=== PATIENT | male | born 1945 | race Caucasian/White ===

== ENCOUNTER 2019-07-06 11:59 | Inpatient (IN) | payer BC ==
[~2019-07-06] VITALS: Ht 162.6 cm; Wt 70.0 kg
[2019-07-06 12:26] VITALS: BP 149/71
[2019-07-06] MEDS ORDERED: HYDR-2759 PO (12:50)
[2019-07-06] MEDS ORDERED: DILT360C32 PO (12:50)
[2019-07-06] MEDS ORDERED: TRAZ-86 PO (12:50)
[2019-07-06] MEDS ORDERED: ASPI-630 PO (12:50)
[2019-07-06] MEDS ORDERED: LISI10TA2 PO (12:50)
[2019-07-06] MEDS ORDERED: LORA0.5T PO (12:50)
[2019-07-06] MEDS ORDERED: CARV25TA2 PO (12:50)
[2019-07-06] MEDS ORDERED: OLAN5TAB5 PO (12:50)
[2019-07-06] MEDS ORDERED: ALLO300T PO (12:50)
[2019-07-06] MEDS ORDERED: CEFD300C PO (12:56)
[2019-07-06] MEDS ORDERED: MAG HYDROX/AL HYDROX/SIMETH 30 ML ORAL.SUSP PO PRN (13:15)
[2019-07-06] MEDS ORDERED: METHYL SALICYLATE/MENTHOL TOPICAL OINTMENT 57GM TUBE. TP PRN (13:15)
[2019-07-06] MEDS ORDERED: ACETAMINOPHEN 325 MG TABLET PO PRN (13:15)
[2019-07-06 13:43] LABS: ALBUMIN 4.1 g/dL (3.4-5.0); ALBUMIN/GLOBULIN RATIO 1.2 (1.0-1.7); CALCIUM 9.3 mg/dL (8.5-10.1); CREATININE 2.8 mg/dL (0.7-1.3); GFR 22.3; MAGNESIUM 2.3 mg/dL (1.8-2.4); POTASSIUM 4.5 mmol/L (3.5-5.1); TOTAL BILIRUBIN 0.5 mg/dL (0.2-1.0); TOTAL PROTEIN 7.4 g/dL (6.4-8.2)
[2019-07-06 14:28] LABS: BASO % 1 % (0-3); EOS # 0.1 x10^3/uL (0.0-0.7); EOS % 2 % (0-3); HEMATOCRIT 42.5 % (39.0-53.0); HEMOGLOBIN 14.1 g/dL (13.0-17.5); LYMPH # 1.8 x10^3/uL (1.0-4.8); LYMPH % 33 % (24-48); MEAN CORPUSCULAR HEMOGLOBIN 32 pg (25-35); MEAN CORPUSCULAR HGB CONC 33 g/dL (31-37); MEAN CORPUSCULAR VOLUME 97 fL (79-100); MONO # 0.6 x10^3/uL (0.0-1.1); MONO % 12 % (0-9); NEUT # 2.9 x10^3uL (1.8-7.7); NEUT % 53 % (31-73); PLATELET COUNT 142 x10^3/uL (140-400); RED CELL DISTRIBUTION WIDTH 14.5 % (11.5-14.5); WHITE BLOOD COUNT 5.4 x10^3/uL (4.0-11.0)
[2019-07-06 16:23] VITALS: BP 159/81
[2019-07-06] MEDS: CARVEDILOL 12.5 MG TABLET PO SCH (17:09)
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
[2019-07-06] MEDS: traZODone 100 MG TABLET. PO SCH (20:02)
--- NOTE | 2019-07-06 21:38 | PDOC ---
Exam Note: Shady Note: Please also refer to the separate dictated note~for this date of service dictated separately. Discussed the patient with Nursing staff reviewed the chart.~Reviewed interim history and current functioning. Reviewed vital signs,~Labs/ Radiology~and current medications noted below. Continue current treatment with the changes noted in the dictated addendum note Assessment: Vital Signs/I&O: Vital Signs Date Time Temp Pulse Resp B/P (MAP) Pulse Ox O2 Delivery O2 Flow Rate FiO2 07/06/19 17:09 60 159/81 07/06/19 16:23 97.8 16 97 07/06/19 12:26 Room Air Labs: Laboratory Tests Test 07/06/19 13:20 White Blood Count 5.4 x10^3/uL (4.0-11.0) Red Blood Count 4.40 x10^6/uL (4.30-5.70) Hemoglobin 14.1 g/dL (13.0-17.5) Hematocrit 42.5 % (39.0-53.0) Mean Corpuscular Volume 97 fL (79-100) Mean Corpuscular Hemoglobin 32 pg (25-35) Mean Corpuscular Hemoglobin Concent 33 g/dL (31-37) Red Cell Distribution Width 14.5 % (11.5-14.5) Platelet Count 142 x10^3/uL (140-400) Neutrophils (%) (Auto) 53 % (31-73) Lymphocytes (%) (Auto) 33 % (24-48) Monocytes (%) (Auto) 12 % (0-9) H Eosinophils (%) (Auto) 2 % (0-3) Basophils (%) (Auto) 1 % (0-3) Neutrophils # (Auto) 2.9 x10^3uL (1.8-7.7) Lymphocytes # (Auto) 1.8 x10^3/uL (1.0-4.8) Monocytes # (Auto) 0.6 x10^3/uL (0.0-1.1) Eosinophils # (Auto) 0.1 x10^3/uL (0.0-0.7) Basophils # (Auto) 0.0 x10^3/uL (0.0-0.2) Sodium Level 143 mmol/L (136-145) Potassium Level 4.5 mmol/L (3.5-5.1) Chloride Level 107 mmol/L (98-107) Carbon Dioxide Level 27 mmol/L (21-32) Anion Gap 9 (6-14) Blood Urea Nitrogen 46 mg/dL (8-26) H Creatinine 2.8 mg/dL (0.7-1.3) H Estimated GFR (Cockcroft-Gault) 22.3 BUN/Creatinine Ratio 16 (6-20) Glucose Level 135 mg/dL (70-99) H Calcium Level 9.3 mg/dL (8.5-10.1) Magnesium Level 2.3 mg/dL (1.8-2.4) Total Bilirubin 0.5 mg/dL (0.2-1.0) Aspartate Amino Transferase (AST) 16 U/L (15-37) Alanine Aminotransferase (ALT) 11 U/L (16-63) L Alkaline Phosphatase 91 U/L (46-116) Total Protein 7.4 g/dL (6.4-8.2) Albumin 4.1 g/dL (3.4-5.0) Albumin/Globulin Ratio 1.2 (1.0-1.7) Current Medications: Meds: Current Medications Medications (Trade) Dose Ordered Sig/Bashir Route PRN Reason Start Time Stop Time Status Last Admin Dose Admin Olanzapine (ZyPREXA ZYDIS) 2.5 mg PRN Q2HR PRN PO ANXIETY / AGITATION 07/06/19 13:00 07/06/19 20:02 Trazodone HCl (Desyrel) 100 mg HS PO 07/06/19 21:00 07/06/19 20:02 Carvedilol (Coreg) 25 mg BIDWMEALS PO 07/06/19 17:00 07/06/19 17:09 I have reviewed the current psychotropics carefully including drug interactions. Risk benefit ratio favors no change other than as noted in my dictated progress note. Diagnosis: Problems: (1) Anxiety disorder (2) Dementia, vascular, with depression (3) Dementia, vascular, with delusions (4) Dementia in Alzheimer's disease with depression (5) Dementia in Alzheimer's disease with delusions (6) Impulse control disorder (7) Pick's disease LENORA SHIRLEY MD Jul 06, 2019 21:38
[2019-07-06] MEDS: LORazepam 0.5 MG TABLET PO PRN (22:09)
[2019-07-07 03:07] LABS: HEMOGLOBIN A1C 5.7 % (4.8-5.6)
[2019-07-07 05:52] VITALS: BP 127/69
[2019-07-07] MEDS: ASPIRIN 81 MG TAB.CHEW PO SCH (08:15)
[2019-07-07] MEDS: LACTOBACILLUS RHAMNOSUS GG 1 CAPSULE. PO SCH ×2 (08:16→19:57)
[2019-07-07] MEDS: ALLOPURINOL 300 MG TABLET. PO SCH (08:16)
[2019-07-07] MEDS: CEFDINIR 300 MG CAPSULE PO SCH ×2 (08:16→19:57)
[2019-07-07] MEDS: CARVEDILOL 12.5 MG TABLET PO SCH ×3 (08:16→22:45)
[2019-07-07] MEDS: LISINOPRIL 10 MG TABLET PO SCH (08:17)
[2019-07-07] MEDS: HYDROcodone/APAP 5/325MG 1 TAB TABLET PO PRN (08:17)
[2019-07-07] MEDS ORDERED: FLU VAX QS 2019-20 (36MOS+)/PF 0.5 ML SYRINGE. VAX IM ONE (09:00)
[2019-07-07 10:38] LABS: ALBUMIN 3.9 g/dL (3.4-5.0); ALBUMIN/GLOBULIN RATIO 1.2 (1.0-1.7); CALCIUM 9.3 mg/dL (8.5-10.1); CREATININE 2.3 mg/dL (0.7-1.3); POTASSIUM 4.8 mmol/L (3.5-5.1); TOTAL BILIRUBIN 0.7 mg/dL (0.2-1.0); TOTAL PROTEIN 7.1 g/dL (6.4-8.2)
[2019-07-07 10:47] LABS: THYROID STIM HORMONE (TSH) 0.451 uIU/mL (0.358-3.740)
[2019-07-07 15:45] VITALS: BP 93/59
[2019-07-07] MEDS: traZODone 100 MG TABLET. PO SCH (19:57)
[2019-07-07] MEDS: LORazepam 0.5 MG TABLET PO PRN (20:54)
--- NOTE | 2019-07-07 21:54 | PDOC ---
Exam Note: Shady Note: Please also refer to the separate dictated note~for this date of service dictated separately.~Patient seen individually. Discussed the patient with Nursing staff reviewed the chart.~Reviewed interim history and current functioning. Reviewed vital signs,~Labs/ Radiology~and current medications noted below. Continue current treatment with the changes noted in the dictated addendum note Assessment: Vital Signs/I&O: Vital Signs Date Time Temp Pulse Resp B/P (MAP) Pulse Ox O2 Delivery O2 Flow Rate FiO2 07/07/19 16:07 52 93/59 07/07/19 15:45 97.7 16 96 Room Air I & O 07/06/19 07/06/19 07/07/19 15:00 23:00 07:00 Intake Total 240 ml 360 ml Balance 240 ml 360 ml Labs: Laboratory Tests Test 07/07/19 10:04 Sodium Level 144 mmol/L (136-145) Potassium Level 4.8 mmol/L (3.5-5.1) Chloride Level 108 mmol/L (98-107) H Carbon Dioxide Level 27 mmol/L (21-32) Anion Gap 9 (6-14) Blood Urea Nitrogen 42 mg/dL (8-26) H Creatinine 2.3 mg/dL (0.7-1.3) H Estimated GFR (Cockcroft-Gault) 28.0 BUN/Creatinine Ratio 18 (6-20) Glucose Level 122 mg/dL (70-99) H Calcium Level 9.3 mg/dL (8.5-10.1) Total Bilirubin 0.7 mg/dL (0.2-1.0) Aspartate Amino Transferase (AST) 25 U/L (15-37) Alanine Aminotransferase (ALT) 14 U/L (16-63) L Alkaline Phosphatase 90 U/L (46-116) Total Protein 7.1 g/dL (6.4-8.2) Albumin 3.9 g/dL (3.4-5.0) Albumin/Globulin Ratio 1.2 (1.0-1.7) Current Medications: Meds: Current Medications Medications (Trade) Dose Ordered Sig/Bashir Route PRN Reason Start Time Stop Time Status Last Admin Dose Admin Allopurinol (Zyloprim) 300 mg DAILY PO 07/07/19 09:00 07/07/19 08:16 Aspirin (Children'S Aspirin) 81 mg DAILY PO 07/07/19 09:00 07/07/19 08:15 Diltiazem HCl (Cardizem 24hr Cd) 360 mg DAILY PO 07/07/19 09:00 07/07/19 08:16 Influenza Virus Vaccine Quadrival (Afluria Quad 2018-20 (3yr Up) Syringe) 0.5 ml ONCE ONCE VAX IM 07/07/19 09:00 07/07/19 09:01 DC 07/07/19 17:29 Cefdinir (Omnicef) 300 mg BID PO 07/07/19 09:00 07/07/19 19:57 Lactobacillus Rhamnosus (Culturelle) 1 cap BID PO 07/07/19 09:00 07/07/19 19:57 I have reviewed the current psychotropics carefully including drug interactions. Risk benefit ratio favors no change other than as noted in my dictated progress note. Diagnosis: Problems: (1) Anxiety disorder (2) Dementia, vascular, with depression (3) Dementia, vascular, with delusions (4) Dementia in Alzheimer's disease with depression (5) Dementia in Alzheimer's disease with delusions (6) Impulse control disorder (7) Pick's disease LENORA SHIRLEY MD Jul 07, 2019 21:54
--- NOTE | 2019-07-08 04:17 | HP ---
ADMIT DATE: 07/06/2019 HISTORY OF PRESENT ILLNESS: This is a 73-year-old gentleman. The patient apparently has manic episodes where he has been walking around naked. He is very rigid, however. Decreased paucity of facial expression as well as generalized movement, although apparently he has been having problems with impulse control with aggressive punching and hitting, kicking at times to his . He also has some delusional activity of talking to small people and other than that, he was brought in for further evaluation. PAST MEDICAL HISTORY: Includes that of hypertension, history of alcohol abuse, although he has not had anything for the last 3 years. He has been on hospice care from time to time. UA was positive for infection. The patient also notes he has a history of Pick's disease. The patient also has Alzheimer, vascular type. ALLERGIES: The patient has no known allergies. The patient is a full code. CURRENT PSYCHOTROPICS: Trazodone 100 mg at bedtime, Ativan 0.5 mg q. 4, Zyprexa 2.5 q. 2. FAMILY HISTORY: Noncontributory. SOCIAL HISTORY: The patient was living at home with his who is trying to take good care of him. Previous alcohol abuse, but otherwise no other significant situations there. REVIEW OF SYSTEMS: The patient was unable to really answer any questions as noted and had marked paucity of speech. The patient is very rigid, although he had no tremor and like. PHYSICAL EXAMINATION: VITAL SIGNS: Blood pressure approximately 125/70, respirations 18, pulse 76, afebrile. GENERAL: This is a white male, looking appropriate for age; however, marked rigidity, also has very little facial expression and has a very guarded gait, whether this is related to medication or not ____ see the patient before, but it almost looks parkinsonian except for as ____ noted above. He has no resting tremor, no cogwheeling. LUNGS: Otherwise, the lungs are clear. CARDIOVASCULAR: Regular sinus rhythm. ABDOMEN: Soft, nontender in this frail-appearing white male. EXTREMITIES: No clubbing, cyanosis or edema. NEUROLOGIC: The patient is very barely arousable, does respond to his name, but other than that, was unable to really utter just a few words and he has marked paucity of speech no doubt. DIAGNOSES: Goes something like Pick's disease. He has problems with anxiety disorder; dementia, vascular with depression; dementia, vascular with delusions; dementia with Alzheimer types with depression and delusions, impulse control disorder, hypotension, marked decreased mobility and flexibility. PLAN: The patient will continue to be monitored carefully, make further evaluation on him as indicated. We will adjust his blood pressure medications downward ____ get his blood pressure back into a more reasonable range. VIOLETA DHALIWAL MD DR: YORDAN/nts JOB#: [id number] / [id number]
[2019-07-08 06:23] VITALS: BP 109/59
[2019-07-08] MEDS: LACTOBACILLUS RHAMNOSUS GG 1 CAPSULE. PO SCH ×2 (07:42→19:39)
[2019-07-08] MEDS: ASPIRIN 81 MG TAB.CHEW PO SCH (07:43)
[2019-07-08] MEDS: LISINOPRIL 10 MG TABLET PO SCH (07:43)
[2019-07-08] MEDS: CARVEDILOL 12.5 MG TABLET PO SCH ×2 (07:43→17:00)
[2019-07-08] MEDS: CEFDINIR 300 MG CAPSULE PO SCH ×2 (07:43→19:39)
[2019-07-08] MEDS: ALLOPURINOL 300 MG TABLET. PO SCH (07:43)
[2019-07-08 16:24] VITALS: BP 114/61
[2019-07-08] MEDS: LORazepam 0.5 MG TABLET PO PRN (17:18)
[2019-07-08] MEDS: traZODone 100 MG TABLET. PO SCH (19:39)
[2019-07-09] MEDS: LORazepam 0.5 MG TABLET PO PRN ×2 (00:02→17:43)
[2019-07-09 05:34] VITALS: BP 121/72
[2019-07-09] MEDS: LISINOPRIL 10 MG TABLET PO SCH (07:32)
[2019-07-09] MEDS: LACTOBACILLUS RHAMNOSUS GG 1 CAPSULE. PO SCH ×2 (07:32→20:48)
[2019-07-09] MEDS: ASPIRIN 81 MG TAB.CHEW PO SCH (07:32)
[2019-07-09] MEDS: CEFDINIR 300 MG CAPSULE PO SCH ×2 (07:32→20:48)
[2019-07-09] MEDS: ALLOPURINOL 300 MG TABLET. PO SCH (07:32)
[2019-07-09] MEDS: CARVEDILOL 12.5 MG TABLET PO SCH ×2 (07:33→17:43)
--- NOTE | 2019-07-09 14:45 | PN ---
DATE: 07/08/2019 SUBJECTIVE: The patient was seen today, met with the staff, chart reviewed, and also covering for Dr. Cote. The patient continues to have problems, was not able to sleep, withdrawn, confused, refusing ADLs, is also disorganized with his thinking. Staff reports no major physical complaints. No falls. OBSERVATION: VITAL SIGNS: Temperature 97.4, blood pressure 109/59, pulse 63, respirations 18, O2 sat 94%. Slept only about 4 hours last night. The patient's appetite is fair. LABORATORY DATA: The patient's lab reviewed. The patient's glucose level fluctuates, the last one was 122. The patient's LDL was 126. The patient's BUN was 42, creatinine 2.3. MEDICATIONS: The patient's current medications include trazodone 100 mg at night, olanzapine 2.5 mg q. 2 hours p.r.n. ASSESSMENT: Major neurocognitive disorder, most likely Alzheimer's versus vascular and also alcohol-induced. Generalized anxiety disorder. PLANS: Continue with the current treatment plan. Continue to observe his behavior because the patient had problems with aggressive behaviors prior to coming here. OLI PORRAS MD DR: DEMETRIA/alin JOB#: [id number] / [id number]
[2019-07-09 16:11] LABS: THYROXINE 8.2 ug/dL (4.5-12.0)
[2019-07-09] MEDS: DIVALPROEX 125 MG CAP.SPRINK PO SCH (20:48)
[2019-07-09] MEDS: traZODone 100 MG TABLET. PO SCH (20:48)
[2019-07-09] MEDS: OLANZapine 5 MG TABLET PO SCH (20:49)
[2019-07-10 05:30] VITALS: BP 101/60
[2019-07-10] MEDS: CARVEDILOL 12.5 MG TABLET PO SCH ×2 (08:00→17:13)
[2019-07-10 09:00] VITALS: BP 118/72
[2019-07-10] MEDS: LACTOBACILLUS RHAMNOSUS GG 1 CAPSULE. PO SCH ×2 (09:01→22:17)
[2019-07-10] MEDS: ALLOPURINOL 300 MG TABLET. PO SCH (09:02)
[2019-07-10] MEDS: ASPIRIN 81 MG TAB.CHEW PO SCH (09:02)
[2019-07-10] MEDS: CEFDINIR 300 MG CAPSULE PO SCH ×2 (09:02→22:16)
[2019-07-10] MEDS: DIVALPROEX 125 MG CAP.SPRINK PO SCH ×2 (09:04→22:17)
[2019-07-10] MEDS: LISINOPRIL 10 MG TABLET PO SCH (09:17)
--- NOTE | 2019-07-10 11:36 | PN ---
DATE: 07/09/2019 SUBJECTIVE: The patient was seen today, met with the staff, chart reviewed. The patient continues to exhibit increased agitation, also disorganized thinking. No falls. The patient is also exhibiting emotional lability and poor impulse control. concerned that the patient's medication is not changed since admission as he is getting only p.r.n. mediations. MEDICATIONS: The patient's current medications include trazodone 100 mg at night and Depakote was added 125 mg in the morning and 250 at night, and also the patient is on Zyprexa 5 mg at night p.r.n. to help him with sleep. VITAL SIGNS: Temperature 97.5, blood pressure 121/72, pulse 69, respiration 18, O2 sat 93%. LABORATORY DATA: The patient's lab reviewed. ASSESSMENT: 1. Major neurocognitive disorder, most likely Alzheimer's versus vascular and alcohol-induced. 2. Generalized anxiety disorder. PLAN: To continue with the treatment. OLI PORRAS MD DR: DEMETRIA/alin JOB#: [id number] / [id number]
[2019-07-10 12:19] VITALS: BP 132/62
[2019-07-10 16:22] VITALS: BP 122/66
--- NOTE | 2019-07-10 21:49 | PDOC ---
Exam Note: Shady Note: Please also refer to the separate dictated note~for this date of service dictated separately.~Patient seen individually. Discussed the patient with Nursing staff reviewed the chart.~Reviewed interim history and current functioning. Reviewed vital signs,~Labs/ Radiology~and current medications noted below. Continue current treatment with the changes noted in the dictated addendum note Assessment: Vital Signs/I&O: Vital Signs Date Time Temp Pulse Resp B/P (MAP) Pulse Ox O2 Delivery O2 Flow Rate FiO2 07/10/19 17:13 72 122/66 07/10/19 16:22 97.7 16 97 07/10/19 12:19 Room Air I & O 07/09/19 07/09/19 07/10/19 15:00 23:00 07:00 Intake Total 420 ml 480 ml Balance 420 ml 480 ml Current Medications: Meds: Current Medications Medications (Trade) Dose Ordered Sig/Bashir Route PRN Reason Start Time Stop Time Status Last Admin Dose Admin Divalproex Sodium (Depakote Sprinkles) 125 mg DAILY PO 07/10/19 09:00 07/10/19 09:04 I have reviewed the current psychotropics carefully including drug interactions. Risk benefit ratio favors no change other than as noted in my dictated progress note. Diagnosis: Problems: (1) Anxiety disorder (2) Dementia, vascular, with depression (3) Dementia, vascular, with delusions (4) Dementia in Alzheimer's disease with depression (5) Dementia in Alzheimer's disease with delusions (6) Impulse control disorder (7) Pick's disease LENORA SHIRLEY MD Jul 10, 2019 21:49
[2019-07-10] MEDS: OLANZapine 5 MG TABLET PO SCH (22:16)
[2019-07-10] MEDS: traZODone 100 MG TABLET. PO SCH (22:17)
--- NOTE | 2019-07-11 01:38 | PN ---
DATE: 07/07/2019 PSYCHIATRIC PROGRESS NOTE This late entry, 07/07, covers the elements not covered in my initial note. SUBJECTIVE: I met with the patient in the morning. Per WADE Camp, the patient slept 5 hours previous night, was agitated at night, received Zyprexa, Zydis and Ativan. He does have a UTI. Ceftin was given in the ER and then restarted on the unit on 07/07. He has been nonverbal, later did tell the nursing staff his name, but unaware of his date of . REVIEW OF SYSTEMS: No CV, , pulmonary, eye, ENT systems symptoms on review. Reliability poor. MENTAL STATUS EXAM: Oriented to himself. Insight, judgment, recent and remote memory, attention, concentration, fund of knowledge poor, consistent with his diagnosis mentioned in my initial note. PLAN: No change from initial note. Continue trazodone 100 mg at bedtime, Zyprexa p.r.n., treat the UTI. Consider adding SSRIs. Rest unchanged for now. MAN Varsha SHIRLEY MD DR: AMILCAR/alin JOB#: [id number] / [id number]
[2019-07-11 05:45] VITALS: BP 119/51
[2019-07-11 09:00] VITALS: BP 117/54
[2019-07-11] MEDS ORDERED: SERTRALINE 50 MG TABLET. PO SCH (09:00)
[2019-07-11] MEDS: LACTOBACILLUS RHAMNOSUS GG 1 CAPSULE. PO SCH ×2 (09:24→20:44)
[2019-07-11] MEDS: CEFDINIR 300 MG CAPSULE PO SCH ×2 (09:24→20:44)
[2019-07-11] MEDS: DIVALPROEX 125 MG CAP.SPRINK PO SCH ×2 (09:25→20:44)
[2019-07-11] MEDS: ASPIRIN 81 MG TAB.CHEW PO SCH (09:25)
[2019-07-11] MEDS: LISINOPRIL 10 MG TABLET PO SCH (09:26)
[2019-07-11] MEDS: ALLOPURINOL 300 MG TABLET. PO SCH (09:27)
[2019-07-11] MEDS: SERTRALINE 25 MG TABLET. PO SCH (09:29)
[2019-07-11] MEDS: LORazepam 0.5 MG TABLET PO PRN ×2 (09:42→22:29)
[2019-07-11 11:00] VITALS: BP 129/75
[2019-07-11] MEDS: CARVEDILOL 12.5 MG TABLET PO SCH ×2 (11:05→16:33)
[2019-07-11 16:23] VITALS: BP 104/60
[2019-07-11] MEDS: MAGNESIUM HYDROXIDE 2,400 MG/30 ML ORAL.SUSP. PO PRN (18:24)
[2019-07-11] MEDS: traZODone 100 MG TABLET. PO SCH (20:44)
[2019-07-11] MEDS: OLANZapine 5 MG TABLET PO SCH (20:46)
[2019-07-11] MEDS: MIRTAZAPINE 7.5 MG TABLET. PO SCH (20:47)
--- NOTE | 2019-07-11 21:55 | PDOC ---
Exam Note: Shady Note: Please also refer to the separate dictated note~for this date of service dictated separately.~Patient seen individually. Discussed the patient with Nursing staff reviewed the chart.~Reviewed interim history and current functioning. Reviewed vital signs,~Labs/ Radiology~and current medications noted below. Continue current treatment with the changes noted in the dictated addendum note Assessment: Vital Signs/I&O: Vital Signs Date Time Temp Pulse Resp B/P (MAP) Pulse Ox O2 Delivery O2 Flow Rate FiO2 07/11/19 16:33 62 104/60 07/11/19 16:23 97.2 16 97 07/11/19 05:45 Room Air I & O 07/10/19 07/10/19 07/11/19 15:00 23:00 07:00 Intake Total 120 ml 480 ml Balance 120 ml 480 ml Current Medications: Meds: Current Medications Medications (Trade) Dose Ordered Sig/Bashir Route PRN Reason Start Time Stop Time Status Last Admin Dose Admin Sertraline HCl (Zoloft) 25 mg DAILY PO 07/11/19 09:00 07/14/19 08:00 07/11/19 09:29 Mirtazapine (Remeron) 7.5 mg QHS PO 07/11/19 21:00 07/11/19 20:47 I have reviewed the current psychotropics carefully including drug interactions. Risk benefit ratio favors no change other than as noted in my dictated progress note. Diagnosis: Problems: (1) Anxiety disorder (2) Dementia, vascular, with depression (3) Dementia, vascular, with delusions (4) Dementia in Alzheimer's disease with depression (5) Dementia in Alzheimer's disease with delusions (6) Impulse control disorder (7) Pick's disease LENORA SHIRLEY MD Jul 11, 2019 21:55
--- NOTE | 2019-07-12 04:20 | PN ---
DATE: 07/10/2019 PSYCHIATRIC PROGRESS NOTE This late entry 07/10/2019 covers the elements not covered in my initial note. SUBJECTIVE: I met with the patient in the evening of 07/10/2019. The patient slept 7-1/4 hours previous night. He was combative in the morning with dressing, agitated, swinging at staff. He took his meds crushed. He is not very verbal. REVIEW OF SYSTEMS: No CV, , pulmonary, eye, ENT system symptoms on review. MENTAL STATUS EXAM: Oriented to himself. Insight, judgment, recent and remote memory, attention, concentration, fund of knowledge poor, consistent with his diagnosis. IMPRESSION: Major neurocognitive disorder, multifactorial, Alzheimer's, vascular, possibly due to alcohol with delusion, depression, behavioral disturbance; anxiety disorder, unspecified; impulse control disorder, unspecified; urinary tract infection. Rest unchanged. PLAN: Start Zoloft 25 mg a day, increase in 3 days to 50 mg a day. Continue Zyprexa p.r.n., trazodone 100 mg at bedtime, Ativan p.r.n. Consider Depakote as a mood stabilizer if needed or an atypical antipsychotic if psychotic features and symptoms are present. MAN Varsha SHIRLEY MD DR: AMILCAR/alin JOB#: [id number] / [id number]
[2019-07-12 06:26] VITALS: BP 124/62
[2019-07-12 07:49] LABS: BASO % 1 % (0-3); EOS # 0.1 x10^3/uL (0.0-0.7); EOS % 3 % (0-3); HEMATOCRIT 40.3 % (39.0-53.0); HEMOGLOBIN 13.1 g/dL (13.0-17.5); LYMPH # 1.8 x10^3/uL (1.0-4.8); LYMPH % 38 % (24-48); MEAN CORPUSCULAR HEMOGLOBIN 32 pg (25-35); MEAN CORPUSCULAR HGB CONC 33 g/dL (31-37); MEAN CORPUSCULAR VOLUME 97 fL (79-100); MONO # 0.5 x10^3/uL (0.0-1.1); MONO % 11 % (0-9); NEUT # 2.3 x10^3uL (1.8-7.7); NEUT % 48 % (31-73); PLATELET COUNT 130 x10^3/uL (140-400); RED BLOOD COUNT 4.15 x10^6/uL (4.30-5.70); RED CELL DISTRIBUTION WIDTH 14.3 % (11.5-14.5); WHITE BLOOD COUNT 4.8 x10^3/uL (4.0-11.0)
[2019-07-12 08:04] LABS: ALBUMIN 3.6 g/dL (3.4-5.0); ALBUMIN/GLOBULIN RATIO 1.1 (1.0-1.7); CALCIUM 9.5 mg/dL (8.5-10.1); CREATININE 1.8 mg/dL (0.7-1.3); GFR 37.2; POTASSIUM 5.4 mmol/L (3.5-5.1); TOTAL BILIRUBIN 0.5 mg/dL (0.2-1.0)
[2019-07-12 08:12] LABS: VAL ACID 36 mcg/mL (50-100)
[2019-07-12] MEDS: CEFDINIR 300 MG CAPSULE PO SCH ×2 (09:18→20:37)
[2019-07-12] MEDS: LISINOPRIL 10 MG TABLET PO SCH ×3 (09:19→11:48)
[2019-07-12] MEDS: LACTOBACILLUS RHAMNOSUS GG 1 CAPSULE. PO SCH ×2 (09:19→20:37)
[2019-07-12] MEDS: SERTRALINE 25 MG TABLET. PO SCH (09:19)
[2019-07-12] MEDS: DIVALPROEX 125 MG CAP.SPRINK PO SCH ×2 (09:19→20:37)
[2019-07-12] MEDS: ASPIRIN 81 MG TAB.CHEW PO SCH (09:20)
[2019-07-12] MEDS: ALLOPURINOL 300 MG TABLET. PO SCH (09:20)
[2019-07-12 11:42] VITALS: BP 112/68
[2019-07-12] MEDS: CARVEDILOL 12.5 MG TABLET PO SCH ×2 (11:45→17:00)
[2019-07-12 17:32] VITALS: BP 127/65
[2019-07-12] MEDS: traZODone 100 MG TABLET. PO SCH (20:36)
[2019-07-12] MEDS: MIRTAZAPINE 7.5 MG TABLET. PO SCH (20:37)
[2019-07-12] MEDS: MAGNESIUM HYDROXIDE 2,400 MG/30 ML ORAL.SUSP. PO PRN (21:09)
--- NOTE | 2019-07-12 21:56 | PDOC ---
Exam Note: Shady Note: Please also refer to the separate dictated note~for this date of service dictated separately.~Patient seen individually. Discussed the patient with Nursing staff reviewed the chart.~Reviewed interim history and current functioning. Reviewed vital signs,~Labs/ Radiology~and current medications noted below. Continue current treatment with the changes noted in the dictated addendum note Assessment: Vital Signs/I&O: Vital Signs Date Time Temp Pulse Resp B/P (MAP) Pulse Ox O2 Delivery O2 Flow Rate FiO2 07/12/19 17:32 97.5 58 16 127/65 (85) 96 Room Air I & O 07/11/19 07/11/19 07/12/19 15:00 23:00 07:00 Intake Total 240 ml 360 ml Balance 240 ml 360 ml Labs: Laboratory Tests Test 07/12/19 07:24 White Blood Count 4.8 x10^3/uL (4.0-11.0) Red Blood Count 4.15 x10^6/uL (4.30-5.70) L Hemoglobin 13.1 g/dL (13.0-17.5) Hematocrit 40.3 % (39.0-53.0) Mean Corpuscular Volume 97 fL (79-100) Mean Corpuscular Hemoglobin 32 pg (25-35) Mean Corpuscular Hemoglobin Concent 33 g/dL (31-37) Red Cell Distribution Width 14.3 % (11.5-14.5) Platelet Count 130 x10^3/uL (140-400) L Neutrophils (%) (Auto) 48 % (31-73) Lymphocytes (%) (Auto) 38 % (24-48) Monocytes (%) (Auto) 11 % (0-9) H Eosinophils (%) (Auto) 3 % (0-3) Basophils (%) (Auto) 1 % (0-3) Neutrophils # (Auto) 2.3 x10^3uL (1.8-7.7) Lymphocytes # (Auto) 1.8 x10^3/uL (1.0-4.8) Monocytes # (Auto) 0.5 x10^3/uL (0.0-1.1) Eosinophils # (Auto) 0.1 x10^3/uL (0.0-0.7) Basophils # (Auto) 0.0 x10^3/uL (0.0-0.2) Sodium Level 150 mmol/L (136-145) H Potassium Level 5.4 mmol/L (3.5-5.1) H Chloride Level 115 mmol/L (98-107) H Carbon Dioxide Level 30 mmol/L (21-32) Anion Gap 5 (6-14) L Blood Urea Nitrogen 39 mg/dL (8-26) H Creatinine 1.8 mg/dL (0.7-1.3) H Estimated GFR (Cockcroft-Gault) 37.2 BUN/Creatinine Ratio 22 (6-20) H Glucose Level 97 mg/dL (70-99) Calcium Level 9.5 mg/dL (8.5-10.1) Total Bilirubin 0.5 mg/dL (0.2-1.0) Aspartate Amino Transferase (AST) 50 U/L (15-37) H Alanine Aminotransferase (ALT) 29 U/L (16-63) Alkaline Phosphatase 88 U/L (46-116) Total Protein 7.0 g/dL (6.4-8.2) Albumin 3.6 g/dL (3.4-5.0) Albumin/Globulin Ratio 1.1 (1.0-1.7) Valproic Acid Level 36 mcg/mL (50-100) L Valproic Acid Last Dose Date 07/11/19 Valproic Acid Last Dose Time 2100 Current Medications: I have reviewed the current psychotropics carefully including drug interactions. Risk benefit ratio favors no change other than as noted in my dictated progress note. Diagnosis: Problems: (1) Anxiety disorder (2) Dementia, vascular, with depression (3) Dementia, vascular, with delusions (4) Dementia in Alzheimer's disease with depression (5) Dementia in Alzheimer's disease with delusions (6) Impulse control disorder (7) Pick's disease LENORA SHIRLEY MD Jul 12, 2019 21:56
[2019-07-13] MEDS: CARVEDILOL 12.5 MG TABLET PO SCH ×2 (08:19→17:00)
[2019-07-13] MEDS: LACTOBACILLUS RHAMNOSUS GG 1 CAPSULE. PO SCH ×2 (08:19→19:44)
[2019-07-13] MEDS: ASPIRIN 81 MG TAB.CHEW PO SCH (08:19)
[2019-07-13] MEDS: SERTRALINE 25 MG TABLET. PO SCH (08:20)
[2019-07-13] MEDS: DIVALPROEX 125 MG CAP.SPRINK PO SCH ×2 (08:20→19:43)
[2019-07-13] MEDS: CEFDINIR 300 MG CAPSULE PO SCH ×2 (08:20→19:44)
[2019-07-13] MEDS: ALLOPURINOL 300 MG TABLET. PO SCH (08:20)
[2019-07-13 15:50] VITALS: BP 93/57
[2019-07-13] MEDS: traZODone 100 MG TABLET. PO SCH (19:44)
[2019-07-13] MEDS: MIRTAZAPINE 7.5 MG TABLET. PO SCH (19:44)
--- NOTE | 2019-07-13 21:50 | PDOC ---
Exam Note: Shady Note: Please also refer to the separate dictated note~for this date of service dictated separately.~Patient seen individually. Discussed the patient with Nursing staff reviewed the chart.~Reviewed interim history and current functioning. Reviewed vital signs,~Labs/ Radiology~and current medications noted below. Continue current treatment with the changes noted in the dictated addendum note Assessment: Vital Signs/I&O: Vital Signs Date Time Temp Pulse Resp B/P (MAP) Pulse Ox O2 Delivery O2 Flow Rate FiO2 07/13/19 17:00 79 93/57 07/13/19 15:50 97.5 18 96 Room Air I & O 07/12/19 07/12/19 07/13/19 15:00 23:00 07:00 Intake Total 480 ml 220 ml Balance 480 ml 220 ml Current Medications: I have reviewed the current psychotropics carefully including drug interactions. Risk benefit ratio favors no change other than as noted in my dictated progress note. Diagnosis: Problems: (1) Anxiety disorder (2) Dementia, vascular, with depression (3) Dementia, vascular, with delusions (4) Dementia in Alzheimer's disease with depression (5) Dementia in Alzheimer's disease with delusions (6) Impulse control disorder (7) Pick's disease LENORA SHIRLEY MD Jul 13, 2019 21:50
--- NOTE | 2019-07-14 01:14 | PN ---
DATE: 07/12/2019 PSYCHIATRIC PROGRESS NOTE This late entry, 07/12, covers elements not covered in my initial note. SUBJECTIVE: I met with the patient evening of 07/12 and staffed a treatment team meeting in the morning. The patient slept 4 hours. Appetite 50-75%, wandering, confused, combative with cares. UTI is being treated on Ceftin. REVIEW OF SYSTEMS: No CV, , pulmonary, eye, ENT system symptoms on review. Reliability poor. MENTAL STATUS EXAM: Oriented to himself. Insight, judgment, recent and remote memory, attention, concentration, fund of knowledge poor, consistent with his diagnosis mentioned in my initial note. PLAN: No change from initial note. MAN Varsha SHIRLEY MD DR: AMILCAR/alin JOB#: [id number] / [id number]
--- NOTE | 2019-07-14 01:15 | PN ---
DATE: 07/11/2019 PSYCHIATRIC PROGRESS NOTE This late entry, 07/11, covers elements not covered in my initial note. SUBJECTIVE: I met with the patient evening of 07/11. Per Melina RN, patient slept 3-1/2 hours previous night. In the morning, he was irritable, combative, pulled his fist back and was posturing as if he was going to punch the nursing staff. Received Ativan at 9:30 a.m., Zyprexa 10:30 a.m. Combative with redirections. REVIEW OF SYSTEMS: No CV, , pulmonary, eye, ENT system symptoms on review. Reliability poor. MENTAL STATUS EXAM: Oriented to himself. Insight, judgment, recent and remote memory, attention, concentration, fund of knowledge poor, consistent with his diagnosis. IMPRESSION: Major neurocognitive disorder, Alzheimer, vascular with delusion, depression, behavioral disturbance; anxiety disorder, unspecified; impulse control disorder, unspecified. PLAN: Start Remeron 7.5 mg at bedtime for his insomnia. Check a valproic acid level in the morning. Continue rest of the psychotropics. Make further adjustments as clinically indicated. MAN Varsha SHIRLEY MD DR: AMILCAR/alin JOB#: [id number] / [id number]
[2019-07-14 06:35] VITALS: BP 153/75
[2019-07-14] MEDS: CARVEDILOL 12.5 MG TABLET PO SCH ×2 (08:30→17:11)
[2019-07-14] MEDS: ASPIRIN 81 MG TAB.CHEW PO SCH (08:31)
[2019-07-14] MEDS: LACTOBACILLUS RHAMNOSUS GG 1 CAPSULE. PO SCH ×2 (08:31→19:58)
[2019-07-14] MEDS: DIVALPROEX 125 MG CAP.SPRINK PO SCH ×2 (08:32→19:58)
[2019-07-14] MEDS: CEFDINIR 300 MG CAPSULE PO SCH ×2 (08:32→19:58)
[2019-07-14] MEDS: ALLOPURINOL 300 MG TABLET. PO SCH (08:42)
[2019-07-14] MEDS: SERTRALINE 50 MG TABLET. PO SCH (08:42)
[2019-07-14] MEDS: LORazepam 0.5 MG TABLET PO PRN ×2 (10:31→21:41)
[2019-07-14 16:14] VITALS: BP 114/70
--- NOTE | 2019-07-14 18:00 | PN ---
DATE: 07/13/2019 PSYCHIATRIC PROGRESS NOTE This late entry of 07/13/2019 covers elements not covered in my initial note. SUBJECTIVE: I met with the patient in the evening. Per WADE Merchant, the patient refused her medications the previous night, took it during the day today, resistive with cares at night, but today had a shower. REVIEW OF SYSTEMS: No CV, , pulmonary, eye, ENT system symptoms on review. Reliability poor. MENTAL STATUS EXAM: Oriented to himself. Insight, judgment, recent and remote memory, attention, concentration, fund of knowledge poor, consistent with his diagnosis mentioned in my initial note. PLAN: No change from initial note. MAN Varsha SHIRLEY MD DR: AMILCAR/alin JOB#: [id number] / [id number]
[2019-07-14] MEDS: MIRTAZAPINE 7.5 MG TABLET. PO SCH (19:58)
[2019-07-14] MEDS: traZODone 100 MG TABLET. PO SCH (19:58)
--- NOTE | 2019-07-14 23:00 | PDOC ---
Exam Note: Shady Note: Please also refer to the separate dictated note~for this date of service dictated separately.~Patient seen individually. Discussed the patient with Nursing staff reviewed the chart.~Reviewed interim history and current functioning. Reviewed vital signs,~Labs/ Radiology~and current medications noted below. Continue current treatment with the changes noted in the dictated addendum note Assessment: Vital Signs/I&O: Vital Signs Date Time Temp Pulse Resp B/P (MAP) Pulse Ox O2 Delivery O2 Flow Rate FiO2 07/14/19 17:11 69 114/70 07/14/19 16:14 98.1 16 99 Room Air I & O 07/13/19 07/13/19 07/14/19 14:59 22:59 06:59 Intake Total 720 ml 240 ml Balance 720 ml 240 ml Current Medications: Meds: Current Medications Medications (Trade) Dose Ordered Sig/Bashir Route PRN Reason Start Time Stop Time Status Last Admin Dose Admin Sertraline HCl (Zoloft) 50 mg DAILY PO 07/14/19 09:00 07/14/19 08:42 I have reviewed the current psychotropics carefully including drug interactions. Risk benefit ratio favors no change other than as noted in my dictated progress note. Diagnosis: Problems: (1) Anxiety disorder (2) Dementia, vascular, with depression (3) Dementia, vascular, with delusions (4) Dementia in Alzheimer's disease with depression (5) Dementia in Alzheimer's disease with delusions (6) Impulse control disorder (7) Pick's disease LENORA SHIRLEY MD Jul 14, 2019 23:00
[2019-07-15 05:33] VITALS: BP 140/61
[2019-07-15] MEDS: CEFDINIR 300 MG CAPSULE PO SCH ×2 (07:44→20:38)
[2019-07-15] MEDS: SERTRALINE 50 MG TABLET. PO SCH (07:44)
[2019-07-15] MEDS: LACTOBACILLUS RHAMNOSUS GG 1 CAPSULE. PO SCH ×2 (07:45→20:38)
[2019-07-15] MEDS: DIVALPROEX 125 MG CAP.SPRINK PO SCH ×2 (07:45→20:38)
[2019-07-15] MEDS: CARVEDILOL 12.5 MG TABLET PO SCH ×2 (07:45→16:24)
[2019-07-15] MEDS: ASPIRIN 81 MG TAB.CHEW PO SCH (07:45)
[2019-07-15] MEDS: ALLOPURINOL 300 MG TABLET. PO SCH (07:45)
[2019-07-15] MEDS: DOCUSATE SODIUM 100 MG CAPSULE PO SCH ×2 (08:15→20:38)
[2019-07-15] MEDS: LORazepam 0.5 MG TABLET PO PRN (16:15)
[2019-07-15 16:16] VITALS: BP 130/69
[2019-07-15] MEDS: traZODone 100 MG TABLET. PO SCH (20:38)
[2019-07-15] MEDS: MIRTAZAPINE 7.5 MG TABLET. PO SCH (20:38)
--- NOTE | 2019-07-16 02:44 | PN ---
DATE: 07/15/2019 SUBJECTIVE: The patient was seen today, met with the staff, chart reviewed and also covering for Dr. Cote. The patient continued to have problems with behaviors, refusing to take his medications, tend to wander off, and unable to sit still, also fluctuating mood, and also becomes combative and also resistive to care and behavior fluctuates day-to-day. OBSERVATION: VITAL SIGNS: Temperature 97.5, blood pressure 140/61, pulse 58, respirations 18, O2 sat 100%. Slept about 6-1/2 hours last night. The patient's appetite is fair. The patient is difficult to redirect. The patient is also exhibiting significant mood swings, irritability and angry outbursts. MEDICATIONS: The patient's current medications include Zoloft 50 mg daily, mirtazapine 7.5 mg at night, Depakote 125 mg daily and 250 at night, Zyprexa 5 mg p.r.n. bedtime, trazodone 100 mg at night. The patient is also on olanzapine 2.5 mg q. 2 hours p.r.n. LABORATORY DATA: The patient's lab reviewed, no significant change except for sodium was 150, potassium was 5.4, BUN 39, creatinine 1.8. ASSESSMENT: 1. Major neurocognitive disorder, most likely Alzheimer's versus vascular and alcohol-induced. 2. Generalized anxiety disorder. PLAN: To continue with the treatment. OLI PORRAS MD DR: DEMETRIA/alin JOB#: [id number] / [id number]
[2019-07-16 05:35] VITALS: BP 160/71
--- NOTE | 2019-07-16 07:00 | PN ---
DATE: 07/14/2019 PSYCHIATRIC PROGRESS NOTE This late entry, 07/14/2019, covers the elements not covered in my initial note. SUBJECTIVE: I met with the patient in morning of 07/14/2019. The patient slept 4-1/4 hours previous night. He remains confused, somewhat anxious, restless, redirectable, wandering the unit. REVIEW OF SYSTEMS: No CV, , pulmonary, eye, or ENT system symptoms on review. Reliability poor. MENTAL STATUS EXAM: Oriented to himself. Insight, judgment, recent and remote memory, attention, concentration, fund of knowledge poor, consistent with his diagnosis. He is not very verbal, kept walking around the unit and I had to follow him for the part of my assessment. LABORATORY DATA: Reviewed. IMPRESSION: Unchanged from initial note. PLAN: No change from initial note. Dr. Lainez will cover for me over the next few days during my vacation. MAN Varsha SHIRLEY MD DR: AMILCAR/alin JOB#: [id number] / [id number]
[2019-07-16 07:18] LABS: BASO % 1 % (0-3); EOS # 0.1 x10^3/uL (0.0-0.7); EOS % 2 % (0-3); HEMATOCRIT 37.5 % (39.0-53.0); HEMOGLOBIN 12.3 g/dL (13.0-17.5); LYMPH # 1.3 x10^3/uL (1.0-4.8); LYMPH % 23 % (24-48); MEAN CORPUSCULAR HEMOGLOBIN 32 pg (25-35); MEAN CORPUSCULAR HGB CONC 33 g/dL (31-37); MEAN CORPUSCULAR VOLUME 97 fL (79-100); MONO # 0.6 x10^3/uL (0.0-1.1); MONO % 11 % (0-9); NEUT # 3.7 x10^3uL (1.8-7.7); NEUT % 64 % (31-73); PLATELET COUNT 104 x10^3/uL (140-400); RED BLOOD COUNT 3.87 x10^6/uL (4.30-5.70); RED CELL DISTRIBUTION WIDTH 14.2 % (11.5-14.5); WHITE BLOOD COUNT 5.8 x10^3/uL (4.0-11.0)
[2019-07-16 07:27] LABS: CALCIUM 8.9 mg/dL (8.5-10.1); CREATININE 1.9 mg/dL (0.7-1.3); GFR 34.9; POTASSIUM 5.7 mmol/L (3.5-5.1); TOTAL BILIRUBIN 0.3 mg/dL (0.2-1.0)
[2019-07-16] MEDS: CEFDINIR 300 MG CAPSULE PO SCH ×2 (08:26→20:52)
[2019-07-16] MEDS: DOCUSATE SODIUM 100 MG CAPSULE PO SCH ×2 (08:26→20:52)
[2019-07-16] MEDS: LACTOBACILLUS RHAMNOSUS GG 1 CAPSULE. PO SCH ×2 (08:26→20:51)
[2019-07-16] MEDS: ALLOPURINOL 300 MG TABLET. PO SCH (08:26)
[2019-07-16] MEDS: CARVEDILOL 12.5 MG TABLET PO SCH ×2 (08:26→17:45)
[2019-07-16] MEDS: DIVALPROEX 125 MG CAP.SPRINK PO SCH ×2 (08:26→20:51)
[2019-07-16] MEDS: HYDROcodone/APAP 5/325MG 1 TAB TABLET PO PRN (08:26)
[2019-07-16] MEDS: ASPIRIN 81 MG TAB.CHEW PO SCH (08:26)
[2019-07-16] MEDS: LORazepam 0.5 MG TABLET PO PRN (08:26)
[2019-07-16] MEDS: SERTRALINE 50 MG TABLET. PO SCH (08:27)
[2019-07-16 16:39] VITALS: BP 107/57
[2019-07-16] MEDS: traZODone 100 MG TABLET. PO SCH (20:52)
[2019-07-16] MEDS: MIRTAZAPINE 7.5 MG TABLET. PO SCH (20:52)
[2019-07-16] MEDS: LACTULOSE 20 GM/30 ML SOLUTION. PO SCH (21:00)
[2019-07-16] MEDS: SODIUM POLYSTYRENE SULFONATE 15 GM/60 ML ORAL.SUSP. PO SCH (21:00)
--- NOTE | 2019-07-17 03:30 | PN ---
DATE: 07/16/2019 SUBJECTIVE: The patient was seen today, met with the staff, chart reviewed. The patient continues to exhibiting mood swings, wandering, increased agitation, and fluctuating mood. The patient also exhibiting psychomotor retardation; able to hold the conversation, but incoherent. OBSERVATION: VITAL SIGNS: Temperature 97.8, blood pressure 160/71, pulse 62, respiration 18, O2 sat 99%. Slept about 6-1/2 hours last night. The patient weighs 158.8 pounds. MEDICATIONS: The patient's current medications include Zoloft 50 mg daily, mirtazapine 7.5 mg at night, Depakote 125 mg daily and 250 at night, and Zyprexa 5 mg p.r.n. at bedtime. The patient is also on trazodone 100 mg at night. The patient is not having any side effects. LABORATORY DATA: The patient's lab reviewed. ASSESSMENT: 1. Major neurocognitive disorder, most likely Alzheimer's versus vascular and alcohol-induced. 2. Generalized anxiety disorder. PLAN: To continue with the treatment. OLI PORRAS MD DR: DEMETRIA/alin JOB#: [id number] / [id number]
[2019-07-17 06:01] VITALS: BP 126/61
[2019-07-17 07:50] LABS: CREATININE 1.8 mg/dL (0.7-1.3); GFR 37.2; POTASSIUM 4.7 mmol/L (3.5-5.1)
[2019-07-17] MEDS: LACTOBACILLUS RHAMNOSUS GG 1 CAPSULE. PO SCH ×2 (08:53→21:33)
[2019-07-17] MEDS: DOCUSATE SODIUM 100 MG CAPSULE PO SCH ×2 (08:53→21:33)
[2019-07-17] MEDS: ALLOPURINOL 300 MG TABLET. PO SCH (08:53)
[2019-07-17] MEDS: CEFDINIR 300 MG CAPSULE PO SCH ×2 (08:53→21:32)
[2019-07-17] MEDS: DIVALPROEX 125 MG CAP.SPRINK PO SCH ×2 (08:55→21:33)
[2019-07-17] MEDS: ASPIRIN 81 MG TAB.CHEW PO SCH (08:55)
[2019-07-17] MEDS: LACTULOSE 20 GM/30 ML SOLUTION. PO SCH ×2 (08:56→09:00)
[2019-07-17] MEDS: SERTRALINE 50 MG TABLET. PO SCH (08:56)
[2019-07-17] MEDS: SODIUM POLYSTYRENE SULFONATE 15 GM/60 ML ORAL.SUSP. PO SCH (09:00)
[2019-07-17 09:43] VITALS: BP 127/69
[2019-07-17] MEDS: CARVEDILOL 12.5 MG TABLET PO SCH ×2 (09:47→18:08)
[2019-07-17] MEDS: LORazepam 0.5 MG TABLET PO PRN (11:34)
[2019-07-17 16:13] VITALS: BP 132/73
[2019-07-17] MEDS: traZODone 100 MG TABLET. PO SCH (21:33)
[2019-07-17] MEDS: MIRTAZAPINE 7.5 MG TABLET. PO SCH (21:33)
--- NOTE | 2019-07-18 04:01 | PN ---
DATE: 07/17/2019 SUBJECTIVE: The patient was seen today, met with the staff, chart reviewed. Staff reports the patient is not cooperative, anxious, resistive to care and episodes of being combative, punching. Overall, the patient's behavior has improved. OBSERVATION: VITAL SIGNS: Temperature 98.1, blood pressure 126/61, pulse 55, respirations 20, O2 sat 94%. Slept about 6 hours last night. The patient's appetite is fair. MEDICATIONS: The patient's current medications include Zoloft 50 mg daily, mirtazapine 7.5 mg at night, Depakote 125 mg daily and 250 mg at night and Zyprexa 5 mg p.r.n. at bedtime. The patient is also on trazodone 100 mg at night. The patient is not showing any side effects. LABORATORY DATA: The patient's lab reviewed. ASSESSMENT: 1. Major neurocognitive disorder, most likely Alzheimer versus vascular and alcohol-induced. 2. Generalized anxiety disorder. PLAN: To continue with the treatment. OLI PORRAS MD DR: DEMETRIA/alin JOB#: [id number] / [id number]
[2019-07-18 05:54] VITALS: BP 133/63
[2019-07-18 06:58] LABS: CALCIUM 8.9 mg/dL (8.5-10.1); CREATININE 1.7 mg/dL (0.7-1.3); GFR 39.7; POTASSIUM 4.7 mmol/L (3.5-5.1)
[2019-07-18] MEDS: ASPIRIN 81 MG TAB.CHEW PO SCH (08:35)
[2019-07-18] MEDS: DOCUSATE SODIUM 100 MG CAPSULE PO SCH ×2 (08:35→20:11)
[2019-07-18] MEDS: ALLOPURINOL 300 MG TABLET. PO SCH (08:35)
[2019-07-18] MEDS: DIVALPROEX 125 MG CAP.SPRINK PO SCH ×2 (08:35→20:10)
[2019-07-18] MEDS: CARVEDILOL 12.5 MG TABLET PO SCH ×2 (08:35→18:10)
[2019-07-18] MEDS: CEFDINIR 300 MG CAPSULE PO SCH ×2 (08:35→20:11)
[2019-07-18] MEDS: LACTOBACILLUS RHAMNOSUS GG 1 CAPSULE. PO SCH ×2 (08:35→20:11)
[2019-07-18] MEDS: SERTRALINE 50 MG TABLET. PO SCH (08:35)
[2019-07-18 16:09] VITALS: BP 159/77
[2019-07-18] MEDS: traZODone 100 MG TABLET. PO SCH (20:11)
[2019-07-18] MEDS: MIRTAZAPINE 7.5 MG TABLET. PO SCH (20:11)
[2019-07-19] MEDS: OLANZapine 5 MG TABLET PO SCH (00:17)
[2019-07-19 06:20] VITALS: BP 174/81
--- NOTE | 2019-07-19 08:11 | PN ---
DATE: 07/18/2019 SUBJECTIVE: The patient was seen today, met with the staff, chart reviewed. The patient is able to walk, continues to wander. The patient is also exhibiting some blunting of affect, indifferent to surroundings. OBSERVATION: VITAL SIGNS: Temperature 97.1, blood pressure 133/63, pulse 90, respirations 20, O2 sat 100%. GENERAL: Slept about 5 hours last night. The patient's appetite is fair. MEDICATIONS: The patient's current medications include Zoloft 50 mg daily, mirtazapine 7.5 mg at night, Depakote 125 mg daily and 250 mg at night and Zyprexa 5 mg p.r.n. at bedtime. The patient is also on trazodone 100 mg at night. The patient is not having any major side effects. ASSESSMENT: 1. Major neurocognitive disorder, most likely Alzheimer's versus vascular and alcohol-induced. 2. Generalized anxiety disorder. PLAN: To continue with the treatment. OLI PORRAS MD DR: DEMETRIA/alin JOB#: [id number] / [id number]
[2019-07-19] MEDS: DOCUSATE SODIUM 100 MG CAPSULE PO SCH ×2 (08:54→20:24)
[2019-07-19] MEDS: ALLOPURINOL 300 MG TABLET. PO SCH (08:54)
[2019-07-19] MEDS: LACTOBACILLUS RHAMNOSUS GG 1 CAPSULE. PO SCH ×2 (08:54→20:24)
[2019-07-19] MEDS: CEFDINIR 300 MG CAPSULE PO SCH ×2 (08:54→20:25)
[2019-07-19] MEDS: DIVALPROEX 125 MG CAP.SPRINK PO SCH ×2 (08:54→20:25)
[2019-07-19] MEDS: ASPIRIN 81 MG TAB.CHEW PO SCH (08:54)
[2019-07-19] MEDS: SERTRALINE 50 MG TABLET. PO SCH (08:55)
[2019-07-19] MEDS: CARVEDILOL 12.5 MG TABLET PO SCH ×2 (08:55→17:00)
[2019-07-19 16:15] VITALS: BP 123/69
[2019-07-19] MEDS: traZODone 100 MG TABLET. PO SCH (20:25)
[2019-07-19] MEDS: MIRTAZAPINE 7.5 MG TABLET. PO SCH (20:25)
[2019-07-20 05:57] VITALS: BP 156/67
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
[2019-07-20] MEDS: ALLOPURINOL 300 MG TABLET. PO SCH (08:07)
[2019-07-20] MEDS: ASPIRIN 81 MG TAB.CHEW PO SCH (08:08)
[2019-07-20] MEDS: CARVEDILOL 12.5 MG TABLET PO SCH ×3 (08:08→20:13)
[2019-07-20] MEDS: DIVALPROEX 125 MG CAP.SPRINK PO SCH ×2 (08:08→20:13)
[2019-07-20] MEDS: DOCUSATE SODIUM 100 MG CAPSULE PO SCH ×2 (08:08→20:12)
[2019-07-20] MEDS: LACTOBACILLUS RHAMNOSUS GG 1 CAPSULE. PO SCH ×2 (08:08→20:13)
[2019-07-20] MEDS: SERTRALINE 50 MG TABLET. PO SCH (08:08)
[2019-07-20] MEDS: CEFDINIR 300 MG CAPSULE PO SCH ×2 (08:08→20:13)
[2019-07-20 16:58] VITALS: BP 109/61
[2019-07-20] MEDS: traZODone 100 MG TABLET. PO SCH (20:13)
[2019-07-20] MEDS: MIRTAZAPINE 7.5 MG TABLET. PO SCH (20:13)
[2019-07-20] MEDS: OLANZapine 5 MG TABLET PO SCH (20:14)
--- NOTE | 2019-07-21 01:59 | PN ---
DATE: 07/20/2019 SUBJECTIVE: The patient was seen today, met with the staff, chart reviewed. The patient is still confused, wandering, stooping, unsteady gait, but no falls. The patient had shown slight improvement with the psychomotor activity. I also talked to the physician from insurance company to give an update and also for doctor to doctor review. They are concerned about the patient's length of stay, apparently he has been here for 2 weeks and apparently he was on hospice care before and their recommendation to discharge the patient to be placed on hospice care and return to long term. OBSERVATION: VITAL SIGNS: Temperature 98.1, blood pressure 156/67, pulse 65, respirations 24, O2 sat 96%. Slept only about 3 hours last night. LABORATORY DATA: The patient's lab reviewed. The patient continues to have visual hallucinations, confused. ASSESSMENT: 1. Major neurocognitive disorder, most likely Alzheimer's versus vascular and alcohol induced. 2. Also to consider Lewy body disease. 3. Generalized anxiety disorder. PLAN: To continue with the treatment. The patient still has 3 more days approved and plan for discharge next week. OLI PORRAS MD DR: DEMETRIA/alin JOB#: [id number] / [id number]
[2019-07-21 05:14] VITALS: BP 161/81
[2019-07-21] MEDS: CEFDINIR 300 MG CAPSULE PO SCH ×2 (07:55→19:48)
[2019-07-21] MEDS: LACTOBACILLUS RHAMNOSUS GG 1 CAPSULE. PO SCH ×2 (07:55→19:48)
[2019-07-21] MEDS: DIVALPROEX 125 MG CAP.SPRINK PO SCH ×2 (07:56→19:49)
[2019-07-21] MEDS: SERTRALINE 50 MG TABLET. PO SCH (07:56)
[2019-07-21] MEDS: CARVEDILOL 12.5 MG TABLET PO SCH ×2 (07:56→19:48)
[2019-07-21] MEDS: DOCUSATE SODIUM 100 MG CAPSULE PO SCH ×2 (07:56→19:48)
[2019-07-21] MEDS: ALLOPURINOL 300 MG TABLET. PO SCH (07:57)
[2019-07-21] MEDS: ASPIRIN 81 MG TAB.CHEW PO SCH (07:57)
[2019-07-21 15:44] VITALS: BP 106/63
[2019-07-21] MEDS: MIRTAZAPINE 7.5 MG TABLET. PO SCH (19:48)
[2019-07-21] MEDS: traZODone 100 MG TABLET. PO SCH (19:48)
[2019-07-21] MEDS: OLANZapine 5 MG TABLET PO SCH (19:49)
[2019-07-22 07:12] VITALS: BP 146/70
[2019-07-22] MEDS: DIVALPROEX 125 MG CAP.SPRINK PO SCH ×2 (11:37→20:16)
[2019-07-22] MEDS: ALLOPURINOL 300 MG TABLET. PO SCH (11:37)
[2019-07-22] MEDS: DOCUSATE SODIUM 100 MG CAPSULE PO SCH ×2 (11:37→20:17)
[2019-07-22] MEDS: CEFDINIR 300 MG CAPSULE PO SCH ×2 (11:37→20:17)
[2019-07-22] MEDS: SERTRALINE 50 MG TABLET. PO SCH (11:38)
[2019-07-22] MEDS: LACTOBACILLUS RHAMNOSUS GG 1 CAPSULE. PO SCH ×2 (11:38→20:17)
[2019-07-22] MEDS: CARVEDILOL 12.5 MG TABLET PO SCH ×2 (11:38→20:17)
[2019-07-22] MEDS: ASPIRIN 81 MG TAB.CHEW PO SCH (11:39)
[2019-07-22 15:41] VITALS: BP 154/71
--- NOTE | 2019-07-22 16:43 | PN ---
DATE: 07/22/2019 SUBJECTIVE: The patient's progress reviewed, met with the staff, and the patient continues to have problems, pacing, unsteady gait. OBSERVATION: VITAL SIGNS: Temperature 97.8, blood pressure 146/70, pulse is 61, respiration 20, and O2 sat 96%. GENERAL: Slept about 6 hours the last night. The patient's appetite is fair. LABORATORY DATA: Reviewed. ASSESSMENT: 1. Major neurocognitive disorder, most likely Alzheimer's versus vascular and alcohol-induced. Also to consider Lewy body disease. 2. Generalized anxiety disorder. PLAN: To continue with the treatment. OLI PORRAS MD DR: DEMETRIA/alin JOB#: [id number] / [id number]
[2019-07-22] MEDS: traZODone 100 MG TABLET. PO SCH (20:16)
[2019-07-22] MEDS: MIRTAZAPINE 7.5 MG TABLET. PO SCH (20:17)
[2019-07-22] MEDS: OLANZapine 5 MG TABLET PO SCH (20:17)
--- NOTE | 2019-07-22 22:30 | PDOC ---
Exam Note: Shady Note: Please also refer to the separate dictated note~for this date of service dictated separately.~Patient seen individually. Discussed the patient with Nursing staff reviewed the chart.~Reviewed interim history and current functioning. Reviewed vital signs,~Labs/ Radiology~and current medications noted below. Continue current treatment with the changes noted in the dictated addendum note Assessment: Vital Signs/I&O: Vital Signs Date Time Temp Pulse Resp B/P (MAP) Pulse Ox O2 Delivery O2 Flow Rate FiO2 07/22/19 20:17 64 154/71 07/22/19 15:41 97.6 18 96 07/17/19 16:13 Room Air I & O 07/21/19 07/21/19 07/22/19 15:00 23:00 07:00 Intake Total 960 ml 240 ml Balance 960 ml 240 ml Current Medications: I have reviewed the current psychotropics carefully including drug interactions. Risk benefit ratio favors no change other than as noted in my dictated progress note. Diagnosis: Problems: (1) Anxiety disorder (2) Dementia, vascular, with depression (3) Dementia, vascular, with delusions (4) Dementia in Alzheimer's disease with depression (5) Dementia in Alzheimer's disease with delusions (6) Impulse control disorder (7) Pick's disease LENORA SHIRLEY MD Jul 22, 2019 22:30
--- NOTE | 2019-07-23 04:10 | PDOC ---
Exam Note: Shady Note: Note: Dr. Shirley was to see the patient on 07/22/[address] Lainez continued coverage on the patient for 07/22/2019 and the note written was an error and should be disregarded. Please also refer to the separate dictated note~for this date of service dictated separately.~Patient seen individually. Discussed the patient with Nursing staff reviewed the chart.~Reviewed interim history and current functioning. Reviewed vital signs,~Labs/ Radiology~and current medications noted below. Continue current treatment with the changes noted in the dictated addendum note Assessment: Vital Signs/I&O: Vital Signs Date Time Temp Pulse Resp B/P (MAP) Pulse Ox O2 Delivery O2 Flow Rate FiO2 07/22/19 20:17 64 154/71 07/22/19 15:41 97.6 18 96 07/17/19 16:13 Room Air I & O 07/22/19 07/22/19 07/23/19 14:59 22:59 06:59 Intake Total 480 ml 340 ml Balance 480 ml 340 ml Current Medications: I have reviewed the current psychotropics carefully including drug interactions. Risk benefit ratio favors no change other than as noted in my dictated progress note. Diagnosis: Problems: (1) Anxiety disorder (2) Dementia, vascular, with depression (3) Dementia, vascular, with delusions (4) Dementia in Alzheimer's disease with depression (5) Dementia in Alzheimer's disease with delusions (6) Impulse control disorder (7) Pick's disease LENORA SHIRLEY MD Jul 23, 2019 04:10
[2019-07-23 06:12] VITALS: BP 154/62
[2019-07-23] MEDS: LACTOBACILLUS RHAMNOSUS GG 1 CAPSULE. PO SCH ×2 (08:29→21:30)
[2019-07-23] MEDS: ALLOPURINOL 300 MG TABLET. PO SCH (08:29)
[2019-07-23] MEDS: DIVALPROEX 125 MG CAP.SPRINK PO SCH ×2 (08:30→21:31)
[2019-07-23] MEDS: ASPIRIN 81 MG TAB.CHEW PO SCH (08:30)
[2019-07-23] MEDS: CEFDINIR 300 MG CAPSULE PO SCH (08:30)
[2019-07-23] MEDS: CARVEDILOL 12.5 MG TABLET PO SCH ×3 (08:30→21:31)
[2019-07-23] MEDS: SERTRALINE 50 MG TABLET. PO SCH (08:31)
[2019-07-23] MEDS: DOCUSATE SODIUM 100 MG CAPSULE PO SCH ×2 (08:31→21:31)
[2019-07-23 16:18] VITALS: BP 146/76
[2019-07-23] MEDS: traZODone 100 MG TABLET. PO SCH (21:30)
[2019-07-23] MEDS: MIRTAZAPINE 7.5 MG TABLET. PO SCH (21:30)
[2019-07-23] MEDS: OLANZapine 5 MG TABLET PO SCH (21:30)
--- NOTE | 2019-07-23 21:50 | PDOC ---
Exam Note: Shady Note: Please also refer to the separate dictated note~for this date of service dictated separately.~Patient seen individually. Discussed the patient with Nursing staff reviewed the chart.~Reviewed interim history and current functioning. Reviewed vital signs,~Labs/ Radiology~and current medications noted below. Continue current treatment with the changes noted in the dictated addendum note Assessment: Vital Signs/I&O: Vital Signs Date Time Temp Pulse Resp B/P (MAP) Pulse Ox O2 Delivery O2 Flow Rate FiO2 07/23/19 21:31 63 146/76 07/23/19 16:18 97.4 16 98 07/23/19 06:12 Room Air I & O 07/22/19 07/22/19 07/23/19 15:00 23:00 07:00 Intake Total 480 ml 340 ml Balance 480 ml 340 ml Current Medications: I have reviewed the current psychotropics carefully including drug interactions. Risk benefit ratio favors no change other than as noted in my dictated progress note. Diagnosis: Problems: (1) Anxiety disorder (2) Dementia, vascular, with depression (3) Dementia, vascular, with delusions (4) Dementia in Alzheimer's disease with depression (5) Dementia in Alzheimer's disease with delusions (6) Impulse control disorder (7) Pick's disease LENORA SHIRLEY MD Jul 23, 2019 21:50
[2019-07-24 06:29] VITALS: BP 162/80
[2019-07-24] MEDS: DIVALPROEX 125 MG CAP.SPRINK PO SCH ×3 (08:03→21:04)
[2019-07-24] MEDS: CARVEDILOL 12.5 MG TABLET PO SCH ×2 (08:03→21:04)
[2019-07-24] MEDS: SERTRALINE 50 MG TABLET. PO SCH (08:03)
[2019-07-24] MEDS: DOCUSATE SODIUM 100 MG CAPSULE PO SCH ×2 (08:03→21:04)
[2019-07-24] MEDS: LACTOBACILLUS RHAMNOSUS GG 1 CAPSULE. PO SCH ×2 (08:03→21:00)
[2019-07-24] MEDS: ASPIRIN 81 MG TAB.CHEW PO SCH (08:03)
[2019-07-24] MEDS: ALLOPURINOL 300 MG TABLET. PO SCH (08:04)
[2019-07-24 15:55] VITALS: BP 111/65
--- NOTE | 2019-07-24 19:45 | PN ---
DATE: 07/23/2019 PSYCHIATRIC PROGRESS NOTE This late entry July 23 covers elements not covered in my initial note. SUBJECTIVE: I met with the patient in the evening of July 23. Reviewed information from Dr. Lainez over the past [address] Lainez covered for me during this time. The patient slept 6 hours previous night. He remains confused, wandering, cooperative with care, showers, takes meds crushed, easier to redirect. REVIEW OF SYSTEMS: No CV, , pulmonary, eye, ENT system symptoms on review. Reliability poor. MENTAL STATUS EXAM: Oriented to himself. Insight, judgment, recent and remote memory, attention, concentration, fund of knowledge poor, consistent with his diagnosis mentioned in my initial note. IMPRESSION: Major neurocognitive disorder, Alzheimer, vascular with delusion, depression, behavioral disturbance; anxiety disorder, unspecified; impulse control disorder, unspecified. PLAN: Valproic acid level subtherapeutic at 36 on Depakote 125 a.m., 250 at bedtime. We will increase to 125 a.m., 125 mg at 1300, 250 at bedtime. Check CBC, CMP, valproic acid level in 3 days. Maintain trazodone, Zyprexa p.r.n., Remeron, Zoloft and schedule Zyprexa 5 mg at bedtime for now. MAN CharletteGeoff SHIRLEY MD DR: AMILCAR/alin JOB#: [id number] / [id number]
[2019-07-24] MEDS: MIRTAZAPINE 7.5 MG TABLET. PO SCH (21:04)
[2019-07-24] MEDS: traZODone 100 MG TABLET. PO SCH (21:04)
[2019-07-24] MEDS: OLANZapine 5 MG TABLET PO SCH (21:04)
--- NOTE | 2019-07-24 21:48 | PDOC ---
Exam Note: Shady Note: Please also refer to the separate dictated note~for this date of service dictated separately.~Patient seen individually. Discussed the patient with Nursing staff reviewed the chart.~Reviewed interim history and current functioning. Reviewed vital signs,~Labs/ Radiology~and current medications noted below. Continue current treatment with the changes noted in the dictated addendum note Assessment: Vital Signs/I&O: Vital Signs Date Time Temp Pulse Resp B/P (MAP) Pulse Ox O2 Delivery O2 Flow Rate FiO2 07/24/19 21:04 68 111/65 07/24/19 15:55 97.3 16 98 07/23/19 06:12 Room Air I & O 07/23/19 07/23/19 07/24/19 15:00 23:00 07:00 Intake Total 920 ml 240 ml 100 ml Balance 920 ml 240 ml 100 ml Current Medications: Meds: Current Medications Medications (Trade) Dose Ordered Sig/Bashir Route PRN Reason Start Time Stop Time Status Last Admin Dose Admin Divalproex Sodium (Depakote Sprinkles) 125 mg AFTRNOON PO 07/24/19 13:00 07/24/19 11:41 I have reviewed the current psychotropics carefully including drug interactions. Risk benefit ratio favors no change other than as noted in my dictated progress note. Diagnosis: Problems: (1) Anxiety disorder (2) Dementia, vascular, with depression (3) Dementia, vascular, with delusions (4) Dementia in Alzheimer's disease with depression (5) Dementia in Alzheimer's disease with delusions (6) Impulse control disorder (7) Pick's disease LENORA SHIRLEY MD Jul 24, 2019 21:48
[2019-07-25 05:39] VITALS: BP 132/52
[2019-07-25] MEDS: ALLOPURINOL 300 MG TABLET. PO SCH (08:26)
[2019-07-25] MEDS: ASPIRIN 81 MG TAB.CHEW PO SCH (08:26)
[2019-07-25] MEDS: DOCUSATE SODIUM 100 MG CAPSULE PO SCH ×2 (08:26→21:49)
[2019-07-25] MEDS: CARVEDILOL 12.5 MG TABLET PO SCH ×2 (08:27→21:48)
[2019-07-25] MEDS: SERTRALINE 50 MG TABLET. PO SCH (08:27)
[2019-07-25] MEDS: LACTOBACILLUS RHAMNOSUS GG 1 CAPSULE. PO SCH ×2 (08:27→21:48)
[2019-07-25] MEDS: DIVALPROEX 125 MG CAP.SPRINK PO SCH ×3 (08:27→21:48)
[2019-07-25 16:58] VITALS: BP 134/78
--- NOTE | 2019-07-25 21:40 | PDOC ---
Exam Note: Shady Note: Please also refer to the separate dictated note~for this date of service dictated separately.~Patient seen individually. Discussed the patient with Nursing staff reviewed the chart.~Reviewed interim history and current functioning. Reviewed vital signs,~Labs/ Radiology~and current medications noted below. Continue current treatment with the changes noted in the dictated addendum note Assessment: Vital Signs/I&O: Vital Signs Date Time Temp Pulse Resp B/P (MAP) Pulse Ox O2 Delivery O2 Flow Rate FiO2 07/25/19 16:58 97.6 66 18 134/78 (96) 98 07/23/19 06:12 Room Air I & O 07/24/19 07/24/19 07/25/19 15:00 23:00 07:00 Intake Total 600 ml 340 ml Balance 600 ml 340 ml Current Medications: I have reviewed the current psychotropics carefully including drug interactions. Risk benefit ratio favors no change other than as noted in my dictated progress note. Diagnosis: Problems: (1) Anxiety disorder (2) Dementia, vascular, with depression (3) Dementia, vascular, with delusions (4) Dementia in Alzheimer's disease with depression (5) Dementia in Alzheimer's disease with delusions (6) Impulse control disorder (7) Pick's disease LENORA SHIRLEY MD Jul 25, 2019 21:40
[2019-07-25] MEDS: MIRTAZAPINE 7.5 MG TABLET. PO SCH (21:48)
[2019-07-25] MEDS: OLANZapine 5 MG TABLET PO SCH (21:48)
[2019-07-25] MEDS: traZODone 100 MG TABLET. PO SCH (21:48)
--- NOTE | 2019-07-25 23:47 | PN ---
DATE: 07/24/2019 PSYCHIATRIC PROGRESS NOTE This late entry 07/24/2019 covers elements not covered in my initial note. SUBJECTIVE: I met with the patient in the evening. The patient slept 6 hours previous evening. He remains confused, wandering, but not aggressive. REVIEW OF SYSTEMS: No CV, , pulmonary, eye, ENT system symptoms on review. Reliability poor. MENTAL STATUS EXAM: Oriented to himself. Insight, judgment, recent and remote memory, attention, concentration, fund of knowledge poor, consistent with his diagnosis mentioned in my initial note. PLAN: No change from initial note. MAN Varsha SHIRLEY MD DR: AMILCAR/alin JOB#: [id number] / [id number]
[2019-07-26 06:20] VITALS: BP 167/70
[2019-07-26] MEDS: DIVALPROEX 125 MG CAP.SPRINK PO SCH ×3 (08:38→20:56)
[2019-07-26] MEDS: SERTRALINE 50 MG TABLET. PO SCH (08:38)
[2019-07-26] MEDS: DOCUSATE SODIUM 100 MG CAPSULE PO SCH ×2 (08:38→20:57)
[2019-07-26] MEDS: LACTOBACILLUS RHAMNOSUS GG 1 CAPSULE. PO SCH ×2 (08:39→20:57)
[2019-07-26] MEDS: ALLOPURINOL 300 MG TABLET. PO SCH (08:39)
[2019-07-26] MEDS: CARVEDILOL 12.5 MG TABLET PO SCH ×2 (08:40→20:57)
[2019-07-26] MEDS: ASPIRIN 81 MG TAB.CHEW PO SCH (08:40)
[2019-07-26 16:20] VITALS: BP 162/64
[2019-07-26] MEDS: MIRTAZAPINE 7.5 MG TABLET. PO SCH (20:56)
[2019-07-26] MEDS: traZODone 100 MG TABLET. PO SCH (20:57)
[2019-07-26] MEDS: OLANZapine 5 MG TABLET PO SCH (20:57)
--- NOTE | 2019-07-26 21:08 | PDOC ---
Exam Note: Shady Note: Please also refer to the separate dictated note~for this date of service dictated separately.~Patient seen individually. Discussed the patient with Nursing staff reviewed the chart.~Reviewed interim history and current functioning. Reviewed vital signs,~Labs/ Radiology~and current medications noted below. Continue current treatment with the changes noted in the dictated addendum note Assessment: Vital Signs/I&O: Vital Signs Date Time Temp Pulse Resp B/P (MAP) Pulse Ox O2 Delivery O2 Flow Rate FiO2 07/26/19 20:57 84 162/64 07/26/19 16:20 98.4 18 97 Room Air I & O 07/25/19 07/25/19 07/26/19 15:00 23:00 07:00 Intake Total 600 ml 120 ml 100 ml Balance 600 ml 120 ml 100 ml Current Medications: Meds: Current Medications Medications (Trade) Dose Ordered Sig/Bashir Route PRN Reason Start Time Stop Time Status Last Admin Dose Admin Mirtazapine (Remeron) 15 mg QHS PO 07/26/19 21:00 07/26/19 20:56 I have reviewed the current psychotropics carefully including drug interactions. Risk benefit ratio favors no change other than as noted in my dictated progress note. Diagnosis: Problems: (1) Anxiety disorder (2) Dementia, vascular, with depression (3) Dementia, vascular, with delusions (4) Dementia in Alzheimer's disease with depression (5) Dementia in Alzheimer's disease with delusions (6) Impulse control disorder (7) Pick's disease LENORA SHIRLEY MD Jul 26, 2019 21:08
[2019-07-27 06:25] VITALS: BP 163/76
[2019-07-27 07:03] LABS: ALBUMIN 3.4 g/dL (3.4-5.0); ALK PHOS 97 U/L (46-116); ALT (SGPT) 17 U/L (16-63); ANION GAP 4 (6-14); AST (SGOT) 26 U/L (15-37); BLOOD UREA NITROGEN 35 mg/dL (8-26); BUN/CREATININE RATIO 22 (6-20); CALCIUM 9.1 mg/dL (8.5-10.1); CARBON DIOXIDE 32 mmol/L (21-32); CHLORIDE 111 mmol/L (98-107); CREATININE 1.6 mg/dL (0.7-1.3); GFR 42.6; GLUCOSE 88 mg/dL (70-99); POTASSIUM 4.7 mmol/L (3.5-5.1); SODIUM 147 mmol/L (136-145); TOTAL BILIRUBIN 0.4 mg/dL (0.2-1.0); TOTAL PROTEIN 6.8 g/dL (6.4-8.2)
[2019-07-27 07:12] LABS: VAL ACID 38 mcg/mL (50-100)
[2019-07-27 07:16] LABS: BASO % 1 % (0-3); EOS # 0.1 x10^3/uL (0.0-0.7); EOS % 1 % (0-3); HEMATOCRIT 38.7 % (39.0-53.0); LYMPH # 1.5 x10^3/uL (1.0-4.8); LYMPH % 28 % (24-48); MEAN CORPUSCULAR HEMOGLOBIN 33 pg (25-35); MEAN CORPUSCULAR HGB CONC 34 g/dL (31-37); MEAN CORPUSCULAR VOLUME 98 fL (79-100); MONO # 0.6 x10^3/uL (0.0-1.1); MONO % 11 % (0-9); NEUT # 3.2 x10^3uL (1.8-7.7); NEUT % 59 % (31-73); PLATELET COUNT 124 x10^3/uL (140-400); RED BLOOD COUNT 3.95 x10^6/uL (4.30-5.70); RED CELL DISTRIBUTION WIDTH 14.5 % (11.5-14.5); WHITE BLOOD COUNT 5.4 x10^3/uL (4.0-11.0)
[2019-07-27] MEDS: DOCUSATE SODIUM 100 MG CAPSULE PO SCH ×2 (08:50→21:06)
[2019-07-27] MEDS: CARVEDILOL 12.5 MG TABLET PO SCH ×2 (08:50→21:06)
[2019-07-27] MEDS: DIVALPROEX 125 MG CAP.SPRINK PO SCH ×3 (08:50→21:06)
[2019-07-27] MEDS: LACTOBACILLUS RHAMNOSUS GG 1 CAPSULE. PO SCH (08:50)
[2019-07-27] MEDS: ALLOPURINOL 300 MG TABLET. PO SCH (08:51)
[2019-07-27] MEDS: SERTRALINE 50 MG TABLET. PO SCH (08:51)
[2019-07-27] MEDS: ASPIRIN 81 MG TAB.CHEW PO SCH (08:51)
--- NOTE | 2019-07-27 12:44 | PN ---
DATE: 07/26/2019 This late entry, 07/26/2019, covers elements not covered in my initial note. I met with the patient in the evening and staffed at a treatment team meeting with the entire team in the morning. The patient slept for 3/4 hours, remains confused, wandering, intrusive, takes meds in pudding. Social service staff discussed possible discharge home on hospice care. He can seem to be able to put sentences together. REVIEW OF SYSTEMS: No CV, , pulmonary, eye, ENT system symptoms on review. Reliability poor. MENTAL STATUS EXAMINATION: Oriented to himself. Insight, judgment, recent and remote memory, attention, concentration, fund of knowledge poor, consistent with his diagnosis mentioned in my initial note. PLAN: Increase Zoloft to 75 mg a day, Remeron from 7.5 at bedtime to 15 mg at bedtime. Continue rest unchanged including Depakote. Repeat labs level for the valproic acid on 07/27/2019, adjust thereafter. MAN Varsha SHIRLEY MD DR: AMILCAR/alin JOB#: [id number] / [id number]
[2019-07-27 15:50] VITALS: BP 152/73
--- NOTE | 2019-07-27 18:22 | PN ---
DATE: 07/25/2019 PSYCHIATRIC PROGRESS NOTE This late entry 07/25/2019 covers the elements not covered in my initial note. SUBJECTIVE: I met with the patient in the evening of 07/25/2019. Per Jane OLVERA, the patient slept 6 hours previous night. He remains confused, but had a great day. His brothers visited and he had a good visit with them. REVIEW OF SYSTEMS: No CV, , pulmonary, eye, ENT system symptoms on review. Reliability is poor. He ambulates on his own. MENTAL STATUS EXAM: Oriented to himself. Insight, judgment, recent and remote memory, attention, concentration, fund of knowledge poor, consistent with his diagnosis mentioned in my initial note. PLAN: No change from initial note. MAN Varsha SHIRLEY MD DR: AMILCAR/alin JOB#: [id number] / [id number]
[2019-07-27] MEDS: MIRTAZAPINE 7.5 MG TABLET. PO SCH (21:06)
[2019-07-27] MEDS: OLANZapine 5 MG TABLET PO SCH (21:06)
[2019-07-27] MEDS: traZODone 100 MG TABLET. PO SCH (21:06)
--- NOTE | 2019-07-27 21:35 | PDOC ---
Exam Note: Shady Note: Please also refer to the separate dictated note~for this date of service dictated separately.~Patient seen individually. Discussed the patient with Nursing staff reviewed the chart.~Reviewed interim history and current functioning. Reviewed vital signs,~Labs/ Radiology~and current medications noted below. Continue current treatment with the changes noted in the dictated addendum note Assessment: Vital Signs/I&O: Vital Signs Date Time Temp Pulse Resp B/P (MAP) Pulse Ox O2 Delivery O2 Flow Rate FiO2 07/27/19 21:06 86 152/73 07/27/19 15:50 98.4 16 96 07/26/19 16:20 Room Air I & O 07/26/19 07/26/19 07/27/19 15:00 23:00 07:00 Intake Total 720 ml 200 ml 240 ml Balance 720 ml 200 ml 240 ml Labs: Laboratory Tests Test 07/27/19 06:35 White Blood Count 5.4 x10^3/uL (4.0-11.0) Red Blood Count 3.95 x10^6/uL (4.30-5.70) L Hemoglobin 13.0 g/dL (13.0-17.5) Hematocrit 38.7 % (39.0-53.0) L Mean Corpuscular Volume 98 fL (79-100) Mean Corpuscular Hemoglobin 33 pg (25-35) Mean Corpuscular Hemoglobin Concent 34 g/dL (31-37) Red Cell Distribution Width 14.5 % (11.5-14.5) Platelet Count 124 x10^3/uL (140-400) L Neutrophils (%) (Auto) 59 % (31-73) Lymphocytes (%) (Auto) 28 % (24-48) Monocytes (%) (Auto) 11 % (0-9) H Eosinophils (%) (Auto) 1 % (0-3) Basophils (%) (Auto) 1 % (0-3) Neutrophils # (Auto) 3.2 x10^3uL (1.8-7.7) Lymphocytes # (Auto) 1.5 x10^3/uL (1.0-4.8) Monocytes # (Auto) 0.6 x10^3/uL (0.0-1.1) Eosinophils # (Auto) 0.1 x10^3/uL (0.0-0.7) Basophils # (Auto) 0.0 x10^3/uL (0.0-0.2) Sodium Level 147 mmol/L (136-145) H Potassium Level 4.7 mmol/L (3.5-5.1) Chloride Level 111 mmol/L (98-107) H Carbon Dioxide Level 32 mmol/L (21-32) Anion Gap 4 (6-14) L Blood Urea Nitrogen 35 mg/dL (8-26) H Creatinine 1.6 mg/dL (0.7-1.3) H Estimated GFR (Cockcroft-Gault) 42.6 BUN/Creatinine Ratio 22 (6-20) H Glucose Level 88 mg/dL (70-99) Calcium Level 9.1 mg/dL (8.5-10.1) Total Bilirubin 0.4 mg/dL (0.2-1.0) Aspartate Amino Transferase (AST) 26 U/L (15-37) Alanine Aminotransferase (ALT) 17 U/L (16-63) Alkaline Phosphatase 97 U/L (46-116) Total Protein 6.8 g/dL (6.4-8.2) Albumin 3.4 g/dL (3.4-5.0) Albumin/Globulin Ratio 1.0 (1.0-1.7) Valproic Acid Level 38 mcg/mL (50-100) L Valproic Acid Last Dose Date 07/26/2019 Valproic Acid Last Dose Time 1300 Current Medications: Meds: Current Medications Medications (Trade) Dose Ordered Sig/Bashir Route PRN Reason Start Time Stop Time Status Last Admin Dose Admin Sertraline HCl (Zoloft) 75 mg DAILY PO 07/27/19 09:00 07/27/19 08:51 I have reviewed the current psychotropics carefully including drug interactions. Risk benefit ratio favors no change other than as noted in my dictated progress note. Diagnosis: Problems: (1) Anxiety disorder (2) Dementia, vascular, with depression (3) Dementia, vascular, with delusions (4) Dementia in Alzheimer's disease with depression (5) Dementia in Alzheimer's disease with delusions (6) Impulse control disorder (7) Pick's disease LENORA SHIRLEY MD Jul 27, 2019 21:35
[2019-07-27] MEDS: LORazepam 0.5 MG TABLET PO PRN (22:06)
[2019-07-28 06:13] VITALS: BP 145/72
[2019-07-28] MEDS: ASPIRIN 81 MG TAB.CHEW PO SCH (07:53)
[2019-07-28] MEDS: ALLOPURINOL 300 MG TABLET. PO SCH (07:53)
[2019-07-28] MEDS: DIVALPROEX 125 MG CAP.SPRINK PO SCH ×3 (07:54→19:28)
[2019-07-28] MEDS: SERTRALINE 50 MG TABLET. PO SCH (07:54)
[2019-07-28] MEDS: CARVEDILOL 12.5 MG TABLET PO SCH ×2 (07:54→19:28)
[2019-07-28] MEDS: DOCUSATE SODIUM 100 MG CAPSULE PO SCH ×2 (07:54→19:28)
[2019-07-28 16:40] VITALS: BP 154/60
[2019-07-28] MEDS: traZODone 100 MG TABLET. PO SCH (19:27)
[2019-07-28] MEDS: MIRTAZAPINE 7.5 MG TABLET. PO SCH (19:28)
[2019-07-28] MEDS: OLANZapine 5 MG TABLET PO SCH (19:28)
--- NOTE | 2019-07-28 23:23 | PDOC ---
Exam Note: Shady Note: Please also refer to the separate dictated note~for this date of service dictated separately.~Patient seen individually. Discussed the patient with Nursing staff reviewed the chart.~Reviewed interim history and current functioning. Reviewed vital signs,~Labs/ Radiology~and current medications noted below. Continue current treatment with the changes noted in the dictated addendum note Assessment: Vital Signs/I&O: Vital Signs Date Time Temp Pulse Resp B/P (MAP) Pulse Ox O2 Delivery O2 Flow Rate FiO2 07/28/19 19:28 60 154/60 07/28/19 16:40 97.9 20 97 07/28/19 06:13 Room Air I & O 07/27/19 07/27/19 07/28/19 14:59 22:59 06:59 Intake Total 720 ml 360 ml 240 ml Balance 720 ml 360 ml 240 ml Current Medications: I have reviewed the current psychotropics carefully including drug interactions. Risk benefit ratio favors no change other than as noted in my dictated progress note. Diagnosis: Problems: (1) Anxiety disorder (2) Dementia, vascular, with depression (3) Dementia, vascular, with delusions (4) Dementia in Alzheimer's disease with depression (5) Dementia in Alzheimer's disease with delusions (6) Impulse control disorder (7) Pick's disease LENORA SHIRLEY MD Jul 28, 2019 23:23
[2019-07-29 05:39] VITALS: BP 133/81
[2019-07-29] MEDS ORDERED: MAGNESIUM CITRATE 296 ML SOLUTION. PO ONE (08:00)
[2019-07-29] MEDS: ALLOPURINOL 300 MG TABLET. PO SCH (08:02)
[2019-07-29] MEDS: ASPIRIN 81 MG TAB.CHEW PO SCH (08:02)
[2019-07-29] MEDS: SERTRALINE 50 MG TABLET. PO SCH (08:02)
[2019-07-29] MEDS: DIVALPROEX 125 MG CAP.SPRINK PO SCH ×3 (08:02→20:07)
[2019-07-29] MEDS: CARVEDILOL 12.5 MG TABLET PO SCH ×2 (08:03→20:07)
[2019-07-29] MEDS: DOCUSATE SODIUM 100 MG CAPSULE PO SCH ×2 (08:03→20:07)
[2019-07-29 16:15] VITALS: BP 111/53
[2019-07-29] MEDS: MIRTAZAPINE 7.5 MG TABLET. PO SCH (20:07)
[2019-07-29] MEDS: OLANZapine 5 MG TABLET PO SCH (20:07)
[2019-07-29] MEDS: traZODone 100 MG TABLET. PO SCH (20:07)
--- NOTE | 2019-07-29 21:50 | PDOC ---
Exam Note: Shady Note: Please also refer to the separate dictated note~for this date of service dictated separately.~Patient seen individually. Discussed the patient with Nursing staff reviewed the chart.~Reviewed interim history and current functioning. Reviewed vital signs,~Labs/ Radiology~and current medications noted below. Continue current treatment with the changes noted in the dictated addendum note Assessment: Vital Signs/I&O: Vital Signs Date Time Temp Pulse Resp B/P (MAP) Pulse Ox O2 Delivery O2 Flow Rate FiO2 07/29/19 20:07 71 111/53 07/29/19 16:15 97.4 18 92 07/28/19 06:13 Room Air I & O 07/28/19 07/28/19 07/29/19 15:00 23:00 07:00 Intake Total 240 ml 120 ml Balance 240 ml 120 ml Current Medications: Meds: Current Medications Medications (Trade) Dose Ordered Sig/Bashir Route PRN Reason Start Time Stop Time Status Last Admin Dose Admin Magnesium Citrate (Citroma) 296 ml 1X ONCE PO 07/29/19 08:00 07/29/19 08:03 DC 07/29/19 08:00 I have reviewed the current psychotropics carefully including drug interactions. Risk benefit ratio favors no change other than as noted in my dictated progress note. Diagnosis: Problems: (1) Anxiety disorder (2) Dementia, vascular, with depression (3) Dementia, vascular, with delusions (4) Dementia in Alzheimer's disease with depression (5) Dementia in Alzheimer's disease with delusions (6) Impulse control disorder (7) Pick's disease LENORA SHIRLEY MD Jul 29, 2019 21:50
[2019-07-30 05:31] VITALS: BP 131/68
--- NOTE | 2019-07-30 07:09 | PN ---
DATE: 07/27/2019 PSYCHIATRIC PROGRESS NOTE This late entry 07/27/2019 covers elements not covered in my initial note. SUBJECTIVE: I met with the patient evening of 07/27/2019. The patient slept 4 hours previous night per WADE Michael. He has been confused, wandering, does eat finger foods. Compliant with medications. BP 152/73. Valproic acid level 38. Sodium, BUN and creatinine are elevated. AST 26, ALT 17. We will push fluids due to dehydration. REVIEW OF SYSTEMS: No CV, , pulmonary, eye, ENT system symptoms on review. Reliability poor. MENTAL STATUS EXAM: Oriented to himself. Insight, judgment, recent and remote memory, attention, concentration, fund of knowledge poor, consistent with his diagnosis mentioned in my initial note. PLAN: No change from initial note. MAN Varsha SHIRLEY MD DR: AMILCAR/alin JOB#: [id number] / [id number]
[2019-07-30] MEDS: POLYETHYLENE GLYCOL 3350 17 GM PACKET. PO SCH ×2 (08:45→09:00)
[2019-07-30] MEDS: DIVALPROEX 125 MG CAP.SPRINK PO SCH ×3 (08:45→19:52)
[2019-07-30] MEDS: DOCUSATE SODIUM 100 MG CAPSULE PO SCH ×2 (08:45→19:51)
[2019-07-30] MEDS: SERTRALINE 50 MG TABLET. PO SCH (08:46)
[2019-07-30] MEDS: ASPIRIN 81 MG TAB.CHEW PO SCH (08:46)
[2019-07-30] MEDS: ALLOPURINOL 300 MG TABLET. PO SCH (08:46)
[2019-07-30] MEDS: CARVEDILOL 12.5 MG TABLET PO SCH ×2 (08:47→19:52)
[2019-07-30 16:04] VITALS: BP 141/68
[2019-07-30] MEDS: OLANZapine 5 MG TABLET PO SCH (19:51)
[2019-07-30] MEDS: traZODone 100 MG TABLET. PO SCH (19:51)
[2019-07-30] MEDS: MIRTAZAPINE 7.5 MG TABLET. PO SCH (19:51)
--- NOTE | 2019-07-30 21:13 | PDOC ---
Exam Note: Shady Note: Please also refer to the separate dictated note~for this date of service dictated separately.~Patient seen individually. Discussed the patient with Nursing staff reviewed the chart.~Reviewed interim history and current functioning. Reviewed vital signs,~Labs/ Radiology~and current medications noted below. Continue current treatment with the changes noted in the dictated addendum note Assessment: Vital Signs/I&O: Vital Signs Date Time Temp Pulse Resp B/P (MAP) Pulse Ox O2 Delivery O2 Flow Rate FiO2 07/30/19 19:52 84 141/68 07/30/19 16:04 97.3 20 96 07/28/19 06:13 Room Air I & O 07/29/19 07/29/19 07/30/19 15:00 23:00 07:00 Intake Total 480 ml 600 ml 240 ml Balance 480 ml 600 ml 240 ml Current Medications: I have reviewed the current psychotropics carefully including drug interactions. Risk benefit ratio favors no change other than as noted in my dictated progress note. Diagnosis: Problems: (1) Anxiety disorder (2) Dementia, vascular, with depression (3) Dementia, vascular, with delusions (4) Dementia in Alzheimer's disease with depression (5) Dementia in Alzheimer's disease with delusions (6) Impulse control disorder (7) Pick's disease LENORA SHIRLEY MD Jul 30, 2019 21:13
--- NOTE | 2019-07-30 21:21 | PN ---
DATE: 07/28/2019 PSYCHIATRIC PROGRESS NOTE This late entry 07/28/2019 covers the elements not covered in my initial note. SUBJECTIVE: I met with the patient evening of 07/28/2019. The patient slept 4-1/2 hours previous night. He has been confused, wandering, compliant with medications. REVIEW OF SYSTEMS: No CV, , pulmonary, eye, ENT system symptoms on review. Reliability poor. MENTAL STATUS EXAM: Oriented to himself. Insight, judgment, recent and remote memory, attention, concentration, fund of knowledge poor, consistent with his diagnosis mentioned in my initial note. PLAN: No change from initial note. MAN Varsha SHIRLEY MD DR: AMILCAR/alin JOB#: [id number] / [id number]
--- NOTE | 2019-07-30 21:22 | PN ---
DATE: 07/29/2019 PSYCHIATRIC PROGRESS NOTE This late entry 07/29/2019 covers the elements not covered in my initial note. SUBJECTIVE: I met with the patient in the evening of 07/29/2019. The patient slept 8-1/2 hours previous night. He remains confused, disorganized, but not aggressive. REVIEW OF SYSTEMS: No CV, , pulmonary, eye, ENT system symptoms on review. Reliability is poor. MENTAL STATUS EXAM: Oriented to himself. Insight, judgment, recent and remote memory, attention, concentration, fund of knowledge poor, consistent with his diagnosis mentioned in my initial note. PLAN: No change from initial note. MAN Varsha SHIRLEY MD DR: AMILCAR/alin JOB#: [id number] / [id number]
[2019-07-31 05:47] VITALS: BP 151/67
[2019-07-31] MEDS: ALLOPURINOL 300 MG TABLET. PO SCH (08:40)
[2019-07-31] MEDS: DIVALPROEX 125 MG CAP.SPRINK PO SCH ×3 (08:40→21:42)
[2019-07-31] MEDS: ASPIRIN 81 MG TAB.CHEW PO SCH (08:40)
[2019-07-31] MEDS: DOCUSATE SODIUM 100 MG CAPSULE PO SCH ×2 (08:40→21:43)
[2019-07-31] MEDS: POLYETHYLENE GLYCOL 3350 17 GM PACKET. PO SCH (08:41)
[2019-07-31] MEDS: SERTRALINE 50 MG TABLET. PO SCH (08:41)
[2019-07-31] MEDS: CARVEDILOL 12.5 MG TABLET PO SCH ×2 (08:42→21:42)
[2019-07-31 17:13] VITALS: BP 141/70
--- NOTE | 2019-07-31 21:08 | PDOC ---
Exam Note: Shady Note: Please also refer to the separate dictated note~for this date of service dictated separately.~Patient seen individually. Discussed the patient with Nursing staff reviewed the chart.~Reviewed interim history and current functioning. Reviewed vital signs,~Labs/ Radiology~and current medications noted below. Continue current treatment with the changes noted in the dictated addendum note Assessment: Vital Signs/I&O: Vital Signs Date Time Temp Pulse Resp B/P (MAP) Pulse Ox O2 Delivery O2 Flow Rate FiO2 07/31/19 17:13 98.2 65 16 141/70 (93) 95 07/28/19 06:13 Room Air I & O 07/30/19 07/30/19 07/31/19 15:00 23:00 07:00 Intake Total 600 ml 840 ml Balance 600 ml 840 ml Current Medications: I have reviewed the current psychotropics carefully including drug interactions. Risk benefit ratio favors no change other than as noted in my dictated progress note. Diagnosis: Problems: (1) Anxiety disorder (2) Dementia, vascular, with depression (3) Dementia, vascular, with delusions (4) Dementia in Alzheimer's disease with depression (5) Dementia in Alzheimer's disease with delusions (6) Impulse control disorder (7) Pick's disease LENORA SHIRLEY MD Jul 31, 2019 21:08
[2019-07-31] MEDS: traZODone 100 MG TABLET. PO SCH (21:42)
[2019-07-31] MEDS: MIRTAZAPINE 7.5 MG TABLET. PO SCH (21:43)
[2019-07-31] MEDS: OLANZapine 5 MG TABLET PO SCH (21:43)
--- NOTE | 2019-07-31 22:21 | PN ---
DATE: 07/30/2019 PSYCHIATRIC PROGRESS NOTE This late entry 07/30/2019 covers elements not covered in my initial note. SUBJECTIVE: I met with the patient evening of 07/30/2019. Per WADE Lee, the patient slept 7 hours previous night. He continues to wander, remains confused, eating while wandering. REVIEW OF SYSTEMS: No CV, , pulmonary, eye, ENT system symptoms on review. Reliability poor. MENTAL STATUS EXAMINATION: Oriented to himself. Insight, judgment, recent and remote memory, attention, concentration, fund of knowledge poor, consistent with his diagnosis mentioned in my initial note. PLAN: No change from initial note. MAN Varsha SHIRLEY MD DR: AMILCAR/alin JOB#: [id number] / [id number]
[2019-08-01] MEDS ORDERED: ACET325T9 PO (02:03)
[2019-08-01] MEDS ORDERED: DIVA125C2 PO ×3 (02:04→02:06)
[2019-08-01] MEDS ORDERED: DOCU-109 PO (02:07)
[2019-08-01] MEDS ORDERED: HYDR-2759 PO (02:09)
[2019-08-01] MEDS ORDERED: MAG30ORA2 PO (02:10)
[2019-08-01] MEDS ORDERED: MAGN2400 PO (02:10)
[2019-08-01] MEDS ORDERED: METH28OI2 TP (02:11)
[2019-08-01] MEDS ORDERED: OLAN5TAB9 PO (02:12)
[2019-08-01] MEDS ORDERED: MIRT15TA3 PO (02:12)
[2019-08-01] MEDS ORDERED: POLY17PO5 PO (02:13)
[2019-08-01] MEDS ORDERED: SERT50TA PO (02:14)
[2019-08-01] MEDS ORDERED: DILT180C29 PO (02:15)
[2019-08-01 04:43] VITALS: BP 178/72
[2019-08-01] MEDS: POLYETHYLENE GLYCOL 3350 17 GM PACKET. PO SCH (08:29)
[2019-08-01] MEDS: DOCUSATE SODIUM 100 MG CAPSULE PO SCH (08:29)
[2019-08-01] MEDS: ASPIRIN 81 MG TAB.CHEW PO SCH (08:30)
[2019-08-01] MEDS: SERTRALINE 50 MG TABLET. PO SCH (08:30)
[2019-08-01] MEDS: DIVALPROEX 125 MG CAP.SPRINK PO SCH ×2 (08:30→11:53)
[2019-08-01] MEDS: ALLOPURINOL 300 MG TABLET. PO SCH (08:31)
[2019-08-01 09:00] VITALS: BP 178/72
[2019-08-01] MEDS: CARVEDILOL 12.5 MG TABLET PO SCH (09:00)
[2019-08-01] MEDS ORDERED: CARV25TA PO (11:18)
--- NOTE | 2019-08-01 21:25 | PDOC ---
Exam Note: Shady Note: Please also refer to the separate dictated note~for this date of service dictated separately.~Patient seen individually. Discussed the patient with Nursing staff reviewed the chart.~Reviewed interim history and current functioning. Reviewed vital signs,~Labs/ Radiology~and current medications noted below. Continue current treatment with the changes noted in the dictated addendum note Assessment: Vital Signs/I&O: Vital Signs Date Time Temp Pulse Resp B/P (MAP) Pulse Ox O2 Delivery O2 Flow Rate FiO2 08/01/19 09:00 53 178/72 08/01/19 04:43 97.5 18 89 07/28/19 06:13 Room Air I & O 07/31/19 07/31/19 08/01/19 15:00 23:00 07:00 Intake Total 360 ml 240 ml 100 ml Balance 360 ml 240 ml 100 ml Current Medications: I have reviewed the current psychotropics carefully including drug interactions. Risk benefit ratio favors no change other than as noted in my dictated progress note. Diagnosis: Problems: (1) Dementia with behavioral disturbance (2) Anxiety disorder (3) Dementia, vascular, with depression (4) Dementia, vascular, with delusions (5) Dementia in Alzheimer's disease with depression (6) Dementia in Alzheimer's disease with delusions (7) Impulse control disorder (8) Pick's disease LENORA SHIRLEY MD Aug 01, 2019 21:25
--- NOTE | 2019-08-02 01:17 | DS ---
DATE OF DISCHARGE: 08/01/2019 This note covers the elements not covered in my initial note 08/01/2019. REASON FOR ADMISSION: Please refer to the admission history for details. Briefly, the patient is a 73-year-old male referred from the [facility] where he presented from home on account of worsening confusion. Apparently, he appeared manic, was walking around naked, could not sit still, was pacing, wandering 9-1/2 hours straight at times. He was not sleeping, climbing on furniture, choked his , increasingly aggressive, punching, biting, hitting, kicking according to the . He was seeing and talking to a little girl that was not there. He was psychotic, confused, demented, totally out of control, unmanageable, dangerous in his behaviors resulting in the visit to the ER and then the referral to us. SIGNIFICANT FINDINGS AND CLINICAL COURSE: Following admission, the patient was seen daily individually by myself from a psychiatric standpoint, medical followup with Dr. Espinoza. The patient was quite confused, agitated, restless, wandering, difficult to redirect. Adjustments were made in his psychotropics. He seemed to respond to a combination of Depakote 125 mg daily at 1300, 250 mg at bedtime, level was 38, subtherapeutic, but clinically adequate; Zyprexa p.r.n., trazodone 100 mg at bedtime, Ativan 0.5 mg q.4 hours p.r.n., Zyprexa scheduled 5 mg at bedtime, Zoloft 75 mg a day, Remeron 15 mg at bedtime. REVIEW OF SYSTEMS: Prior to discharge, 08/01/2019, no CV, , pulmonary, eye, ENT system symptoms on review. Reliability poor. MENTAL STATUS EXAM: Oriented to himself. Insight, judgment, recent and remote memory, attention, concentration, fund of knowledge poor, consistent with his diagnosis. CONDITION AT DISCHARGE: Improved. FINAL DIAGNOSES: Major neurocognitive disorder, Alzheimer, vascular with delusion, depression, behavioral disturbance; anxiety disorder, unspecified; impulse control disorder, unspecified. Rest unchanged from admission. DISCHARGE MEDICATIONS: Please refer to the MRAD. DISCHARGE INSTRUCTIONS: Outpatient psychiatric and medical followup was arranged prior to discharge. The patient was discharged home with his as she requested on hospice care. Time for discharge day management greater than 30 minutes. LENORA SHIRLEY MD DR: AMILCAR/alin JOB#: [id number] / [id number]
--- NOTE | 2019-08-02 08:56 | PN ---
DATE: 07/31/2019 PSYCHIATRIC PROGRESS NOTE This late entry 07/31/2019 covers elements not covered in my initial note. SUBJECTIVE: I met with the patient evening of 07/31/2019. Per RN, the patient slept 6-3/4 hours previous night. He remains confused, wandering on the hallways with a plan to discharge home with his on hospice care starting 08/01/2019. He is cooperative till shower time and then got extremely obsessive during the shower and peeled off part of his skin on the arm, which has been dressed. We will go ahead and use Zyprexa 2.5 mg p.r.n. before showers. REVIEW OF SYSTEMS: No CV, , pulmonary, eye, ENT system symptoms on review. Reliability poor. MENTAL STATUS EXAM: Oriented to himself. Insight, judgment, recent and remote memory, attention, concentration, fund of knowledge poor, consistent with his diagnosis mentioned in my initial note. PLAN: No change from initial note. LENORA SHIRLEY MD DR: AMILCAR/alin JOB#: [id number] / [id number]
== END 2019-08-01 13:59 | disposition hospice, home (50) | DRG 56 ==
LOC: GEROPSY 12:07
PROVIDERS: ADMIT Psychiatry & Neurology Psychiatry; ATTEND Psychiatry & Neurology Psychiatry
DX: G30.9 Alzheimer's disease, unspecified (principal); N17.0 Acute kidney failure with tubular necrosis; N39.0 Urinary tract infection, site not specified; F01.51 Vascular dementia, unspecified severity, with behavioral disturbance; F02.81 Dementia in other diseases classified elsewhere, unspecified severity, with behavioral disturbance; F32.9 Major depressive disorder, single episode, unspecified; G31.01 Pick's disease; F63.9 Impulse disorder, unspecified; F41.9 Anxiety disorder, unspecified; F10.10 Alcohol abuse, uncomplicated; I10 Essential (primary) hypertension; F41.1 Generalized anxiety disorder; E86.0 Dehydration; Z79.899 Other long term (current) drug therapy; Z91.83 Wandering in diseases classified elsewhere
CPT/HCPCS: 36415; 80048; 80053; 80061; 80164; 82306; 83036; 83540; 83550; 83735; 84436; 84443; 84480; 85025; 86592; 90471; 90686